=== PATIENT | male | born 1940 | race Caucasian/White ===

== ENCOUNTER 2018-03-08 09:52 | Emergency (ER) | payer OTHER ==
[~2018-03-08] VITALS: Ht 188 cm; Wt 90.7 kg
[~2018-03-08 09:52] MED LIST: ASPI81EC PO; CIPR500 PO; CITA20 PO; CLOP75 PO; FAMO20 PO; FAMOTIDINE; GAVILAX17 GM PO; OXYACE5T PO; PSEU120ER PO; RXOXYACE PO; TAMS.4ER PO; TERB250 PO; VENL75ER PO; ZOLP10 PO
[2018-03-08] MEDS ORDERED: VENL75ER (10:25)
[2018-03-08] MEDS ORDERED: ALEN70 (10:26)
[2018-03-08 10:30] LABS: Chloride (POC) 105 mmol/L (98-108); Creatinine (POC) 0.9 mg/dL (0.8-1.3); Glucose (ISTAT POC) 94 mg/dL (70-99); Hemoglobin (POC) 15.6 g/dL (13.5-17.5); Potassium (POC) 4.5 mmol/L (3.5-5.5); Sodium (POC) 143 mmol/L (135-148); Total CO2 (POC) 27 mmol/L (21-32)
== END 2018-03-08 12:06 | disposition home or self-care (01) ==
LOC: ER 09:52
PROVIDERS: Emergency Medicine
DX: S01.112A Laceration without foreign body of left eyelid and periocular area, initial encounter (principal); S01.81XA Laceration without foreign body of other part of head, initial encounter; S80.02XA Contusion of left knee, initial encounter; R31.9 Hematuria, unspecified; W01.198A Fall on same level from slipping, tripping and stumbling with subsequent striking against other object, initial encounter; Z79.899 Other long term (current) drug therapy; Z86.73 Personal history of transient ischemic attack (TIA), and cerebral infarction without residual deficits; Z87.891 Personal history of nicotine dependence
CPT/HCPCS: 12013; 36415; 70450; 80047; 85014; 99284-25

== ENCOUNTER 2020-01-22 12:51 | Emergency (ER) | payer OTHER ==
[~2020-01-22] VITALS: Ht 182.9 cm; Wt 83.9 kg
[~2020-01-22 12:51] MED LIST changes: +ALEN70 PO
[2020-01-22] MEDS ORDERED: ASPI325 PO (13:04)
[2020-01-22] MEDS ORDERED: OMEGA RED PO (13:06)
[2020-01-22] MEDS ORDERED: AREDS 2 PO (13:09)
[2020-01-22] MEDS ORDERED: Norco 5-325 Ta1 EACH PO (17:06)
== END 2020-01-22 18:15 | disposition home or self-care (01) ==
LOC: ER 12:51
DX: S06.0X0A Concussion without loss of consciousness, initial encounter (principal); S42.032A Displaced fracture of lateral end of left clavicle, initial encounter for closed fracture; S01.81XA Laceration without foreign body of other part of head, initial encounter; Z86.73 Personal history of transient ischemic attack (TIA), and cerebral infarction without residual deficits; Z79.82 Long term (current) use of aspirin; Z79.899 Other long term (current) drug therapy; W10.1XXA Fall (on)(from) sidewalk curb, initial encounter
CPT/HCPCS: 12011; 70450; 72070; 72100; 73000; 99284-25; A9270-GY

== ENCOUNTER → 2020-04-22 | Outpatient (CLI) | payer OTHER ==
[~2020-04-22] MED LIST changes: +AMOCLA875 PO; +AREDS 2 PO; +ASPI325 PO; +ATOR10 PO; -GAVILAX17 GM PO; +LEVAQUIN750 MG PO; +MIRALAX17 GM PO; +Norco 5-325 Ta1 EACH PO; +OMEGA RED PO; +VISBIOME 112.51 EACH PO
[2020-04-22 15:15] LABS: PSA, %Free 27.3 %
== END | disposition home or self-care (01) ==
LOC: LAB 13:38 → LAB SHORT 13:38
PROVIDERS: Hospitalist
DX: R97.20 Elevated prostate specific antigen [PSA] (principal)
CPT/HCPCS: 84153; 84154

== ENCOUNTER 2020-05-01 11:48 | Emergency (ER) | payer OTHER ==
[~2020-05-01] VITALS: Ht 185.4 cm; Wt 79.4 kg
[~2020-05-01 11:48] MED LIST changes: -AMOCLA875 PO; -ATOR10 PO; -LEVAQUIN750 MG PO; -VISBIOME 112.51 EACH PO
[2020-05-01] MEDS ORDERED: ATOR10 PO (12:07)
[2020-05-01 12:26] LABS: BASOPHILS ABSOLUTE AUTO 0.02 K/mm3 (0.00-0.23); BASOPHILS PERCENT AUTO 0 % (0-2); EOSINOPHILS ABSOLUTE AUTO 0.12 K/mm3 (0.00-0.68); EOSINOPHILS PERCENT AUTO 2 % (0-6); Hematocrit 46.2 % (37.0-53.0); Hemoglobin 15.1 g/dL (13.5-17.5); IMMATURE GRAN ABSOLUTE AUTO 0.03 K/mm3 (0.00-0.10); IMMATURE GRAN PERCENT AUTO 0 % (0-1); LYMPHOCYTES ABSOLUTE AUTO 1.97 K/mm3 (0.84-5.20); LYMPHOCYTES PERCENT AUTO 27 % (21-46); MONOCYTES ABSOLUTE AUTO 0.59 K/mm3 (0.16-1.47); MONOCYTES PERCENT AUTO 8 % (4-13); Mean Corpuscular HGB 27.4 pg (26.0-34.0); Mean Corpuscular HGB Conc 32.7 g/dL (31.5-36.5); Mean Corpuscular Volume 84 fL (80-100); NEUTROPHILS ABSOLUTE AUTO 4.56 K/mm3 (1.96-9.15); NEUTROPHILS PERCENT AUTO 63 % (41-73); Platelet Count 196 K/mm3 (150-400); RDW Coefficient Variation 13.4 % (11.7-14.2); RDW Standard Deviation 41.3 fL (35.1-46.3); Red Blood Cell Count 5.51 M/mm3 (4.30-5.90); White Blood Cell Count 7.29 K/mm3 (4.00-11.30)
[2020-05-01 12:45] LABS: Alanine Aminotransfer (ALT/SGP 15 U/L (12-78); Albumin, Blood 3.4 g/dL (3.4-5.0); Albumin/Globulin Ratio 1.1 (0.8-1.8); Alk Phos 119 U/L (50-136); Anion Gap 5 mmol/L (6-16); Aspartate Aminotrans (AST/SGOT 26 U/L (12-37); Bilirubin, Total 1.2 mg/dL (0.1-1.0); Blood Urea Nitrogen 11 mg/dL (8-24); Bun/Creatinine Ratio 12.2 (12.0-20.0); CO2, Blood 26 mmol/L (21-32); Calcium, Blood 8.8 mg/dL (8.5-10.1); Chloride, Blood 112 mmol/L (98-108); Globulin, Blood 3.2 g/dL (2.2-4.0); Glomerular Filtration Rate >60 (60-); Glucose, Blood 108 mg/dL (70-99); Potassium, Blood 4.2 mmol/L (3.5-5.5); Sodium, Blood 143 mmol/L (136-145); Total Protein, Blood 6.6 g/dL (6.4-8.2)
== END 2020-05-01 17:40 | disposition home or self-care (01) ==
LOC: ER 11:48
PROVIDERS: Emergency Medicine
DX: S01.81XA Laceration without foreign body of other part of head, initial encounter (principal); S60.222A Contusion of left hand, initial encounter; S60.221A Contusion of right hand, initial encounter; Z79.82 Long term (current) use of aspirin; Z79.899 Other long term (current) drug therapy; Z86.73 Personal history of transient ischemic attack (TIA), and cerebral infarction without residual deficits; Z87.891 Personal history of nicotine dependence; W01.0XXA Fall on same level from slipping, tripping and stumbling without subsequent striking against object, initial encounter
CPT/HCPCS: 12011; 36415; 70450; 72125; 80053; 85025; 93005; 93010; 99284-25

== ENCOUNTER 2020-06-24 12:10 | Emergency (ER) | payer OTHER ==
[~2020-06-24] VITALS: Ht 185.4 cm; Wt 72.6 kg
[~2020-06-24 12:10] MED LIST changes: +ATOR10 PO
[2020-06-24] MEDS ORDERED: AMOCLA875 PO (14:21)
== END 2020-06-24 15:00 | disposition home or self-care (01) ==
LOC: ER 12:10
DX: S51.852A Open bite of left forearm, initial encounter (principal); Z23 Encounter for immunization; Z79.82 Long term (current) use of aspirin; Z79.899 Other long term (current) drug therapy; Z87.891 Personal history of nicotine dependence; W54.0XXA Bitten by dog, initial encounter
CPT/HCPCS: 12004; 36415; 90471; 90714; 96365-59; 99283-25; A9270; J0696

== ENCOUNTER 2020-07-21 23:10 | Observation (INO) | payer OTHER ==
[~2020-07-21] VITALS: Ht 185.4 cm; Wt 78.0 kg
[~2020-07-21 23:10] MED LIST changes: +AMOCLA875 PO
[2020-07-21 23:39] LABS: BASOPHILS ABSOLUTE AUTO 0.02 K/mm3 (0.00-0.23); BASOPHILS PERCENT AUTO 0 % (0-2); EOSINOPHILS ABSOLUTE AUTO 0.22 K/mm3 (0.00-0.68); EOSINOPHILS PERCENT AUTO 3 % (0-6); Hematocrit 43.7 % (37.0-53.0); Hemoglobin 14.1 g/dL (13.5-17.5); IMMATURE GRAN ABSOLUTE AUTO 0.02 K/mm3 (0.00-0.10); IMMATURE GRAN PERCENT AUTO 0 % (0-1); LYMPHOCYTES ABSOLUTE AUTO 1.88 K/mm3 (0.84-5.20); LYMPHOCYTES PERCENT AUTO 24 % (21-46); MONOCYTES PERCENT AUTO 10 % (4-13); Mean Corpuscular HGB 27.2 pg (26.0-34.0); Mean Corpuscular HGB Conc 32.3 g/dL (31.5-36.5); Mean Corpuscular Volume 84 fL (80-100); Mean Platelet Volume 9.9 fL (9.1-12.4); NEUTROPHILS ABSOLUTE AUTO 5.01 K/mm3 (1.96-9.15); NEUTROPHILS PERCENT AUTO 63 % (41-73); Platelet Count 156 K/mm3 (150-400); RDW Coefficient Variation 13.5 % (11.7-14.2); RDW Standard Deviation 42.1 fL (35.1-46.3); Red Blood Cell Count 5.18 M/mm3 (4.30-5.90); White Blood Cell Count 7.95 K/mm3 (4.00-11.30)
[2020-07-21 23:57] LABS: Alanine Aminotransfer (ALT/SGP 12 U/L (12-78); Albumin, Blood 3.3 g/dL (3.4-5.0); Albumin/Globulin Ratio 1.1 (0.8-1.8); Alk Phos 97 U/L (50-136); Anion Gap 2 mmol/L (6-16); Aspartate Aminotrans (AST/SGOT 14 U/L (12-37); Bilirubin, Total 0.7 mg/dL (0.1-1.0); Blood Urea Nitrogen 15 mg/dL (8-24); Bun/Creatinine Ratio 15.7 (12.0-20.0); CO2, Blood 29 mmol/L (21-32); Calcium, Blood 8.6 mg/dL (8.5-10.1); Chloride, Blood 109 mmol/L (98-108); Creatinine, Blood 0.95 mg/dL (0.60-1.20); Globulin, Blood 2.9 g/dL (2.2-4.0); Glomerular Filtration Rate >60 (60-); Glucose, Blood 94 mg/dL (70-99); Sodium, Blood 140 mmol/L (136-145); Total Protein, Blood 6.2 g/dL (6.4-8.2)
[2020-07-22 01:08] LABS: Source, Urine Clean Catch
[2020-07-22 01:10] LABS: Bilirubin, Urine Neg (Neg); Blood, Urine 1+ (Neg); Glucose Qualitative, Urine Neg (Neg); Ketones, Urine Neg (Neg); Leukocyte Esterase, Urine 1+ (Neg); Nitrite, Urine Neg (Neg); Protein, Urine 1+ (Neg); Specific Gravity, Urine 1.015 (1.003-1.022); Urobilinogen, Urine 1+ (Normal)
[2020-07-22 01:19] LABS: Appearance, Urine Clear (Clear); Color, Urine Yellow (P-Yellow)
[2020-07-22 01:20] LABS: Amorphous Light (0-Heavy); Bacteria Rare /hpf; Mucus Light (0-Heavy); Squamous Epithelial Cells Few /hpf (Few); White Blood Cells, Urine 0-2 /hpf (0-5)
[2020-07-22 03:10] LABS: SARS-Cov-2 (COVID-19) PCR, MMC NEGATIVE (NEGATIVE)
--- NOTE | 2020-07-22 04:08 | NUR ---
PT ADMITTED FROM ER AT APPROX 0200 FOR NICOLLE. ABD MILDLY DISTENDED AND SOFT. ACTIVE BT X4. TENDERNESS IN RLQ WITH PALPATION. PT MEDICATED PRIOR TO ARRIVAL AND REPORTS PAIN IS TOLERABLE. DENIES N/V. PT A&O X4. HX DEMENTIA. AT BEDSIDE WHO IS ABLE TO PROVIDE MEDICAL HISTORY. PT ABLE TO TRANSFER TO BED WITH MINIMAL ASSIST. INDEPENDENT AT BASELINE. PLAN FOR DR. MOTT TO SEE PATIENT LATER THIS MORNING. PT NPO WITH FLUIDS INFUSING PER ORDERS.
--- NOTE | 2020-07-22 11:01 | NUR ---
PT TO OR AT 1100. NOTIFIED; REPORTS SHE WILL MEET PT IN PRE-OP TO SIGN PAPERS.
--- NOTE | 2020-07-22 11:19 | NUR ---
PT TRANSFERED TO [facility] VIA GURNY. History, Chart, Medications and Allergies reviewed before start of procedure. Lungs clear T/O to Auscultation. Pre-Op teaching done. Pt verbalizes understanding. AT BEDSIDE.
--- NOTE | 2020-07-22 12:05 | NUR ---
PT TRANSFERED TO OR VIA GURNY AT APPROX 1045.
--- NOTE | 2020-07-22 12:45 | NUR ---
07/22/20 1245 Everton Lopez PATIENT ON SCHEDULED ANTIBIOTICS
--- NOTE | 2020-07-22 15:07 | NUR ---
PT BACK FROM OR AT 1445. LAP SITES X4 WITH GAUZE AND TEGADERM, CDI. PT WALKED TO BATHROOM WITH SBA AND VOIDED. NOTIFIED THAT PT IS BACK TO ROOM.
--- NOTE | 2020-07-22 17:48 | NUR ---
SHIFT SUMMARY PT ALERT BUT HAS SOME CONFUSION. HE HAD LAP NICOLLE TODAY. LAP SITES X4 COVERED WITH GAUZE AND TEGADERM, C/D/I. ABDOMINAL LAP SCANT AMT OF BLOOD ON GAUZE. DENIES N/V. BEING TREATED FOR PAIN PER EMAR WITH NORCO PRN Q4. PT VOIDING WELL. BEDALARM CURRENTLY ON DUE TO SLIGHT CONFUSION. ON CLEAR LIQ DIET AND TO ADVANCE TOLERATED. WILL REPORT TO ONCOMING RN.
--- NOTE | 2020-07-23 04:27 | NUR ---
SHIFT SUMMARY: PT POD#1 FOR LAP NICOLLE. LAP SITES C/D/I WITH GAUZE AND TEGADERM. DRY BLOODY DRG ON UMBILICAL SITE. PAIN BEING MANAGED WITH NORCO PER EMAR. PT DENIES N/V. TOLERATING SIPS OF WATER THROUGHOUT NIGHT. PT FORGETFUL TO USE CALL LIGHT WHEN NEEDING TO USE RESTROOM. BED ALARM FOR SAFETY.
--- NOTE | 2020-07-23 07:25 | NUR ---
dr smith by to see pt plan to monitor if he can void after the in/out cath if not will repeat x1 then will place wayne with next placement pt has attends in place for cont small amt of bleeding from the penis
--- NOTE | 2020-07-23 11:29 | NUR ---
pt able to void no blood noted per residential supervisor pt back in bed awaiting his will notify dr smith
--- NOTE | 2020-07-23 12:00 | NUR ---
PT VOIDED SCANT AMT WILL DO IN/OUT CATH PER BLADDER SCAN PT HAD EST 500 ML PT HAD SMALL AMT OF BLOOD NOTED
--- NOTE | 2020-07-23 15:38 | NUR ---
pt voided 300 pvr 334 no blood noted will have pt void again with pvr discussed with pt if he has >[address] cath
--- NOTE | 2020-07-23 18:30 | NUR ---
bladder scan [address] per [address] sarah alfonso
--- NOTE | 2020-07-24 04:33 | NUR ---
SHIFT SUMMARY LYING IN HIGH FOWLERS WITH EYES CLOSED, HAS RESTED WELL. STERI STRIP ARE C/D/I AND UMBILICAL GAUZE WITH DRY SS DRAINAGE REMAINS INTACT. DENIES PAIN OR N/V. LEFT FA SL PIV IS PATENT, FLUSHING WITH EASE. SCD'S TO BLE. HUNT CATH IS PATENT, DRAINING CLEAR YELLOW URINE TO GRAVITY. CATH STABLIZATION DEVICE IN PLACE. BAG BELOW PELVIC LEVEL AND NO LOOPING OF LINE. NO FURTHER SIGNIFICANT CHANGES NOTED. DENIES PAIN, DISCOMFORT OR FURTHER NEEDS AT THIS TIME. SAFETY MEASURES IN PLACE. WILL CONTINUE TO MONITOR AND ADDRESS NEEDS THEY ARISE AND GIVE HAND OFF TO ONCOMING SHIFT USING SBAR.
--- NOTE | 2020-07-24 11:01 | NUR ---
NOTIFIED PT'S OF DISCHARGE ORDERS; ARRANGEMENTS MADE FOR PICKUP/DC HOME
[2020-07-24] MEDS ORDERED: TAMS.4ER PO (12:26)
--- NOTE | 2020-07-24 14:45 | NUR ---
provided pt and spoude with discharge instructions and printed education, peripheral IV removed wnl. Provided pt's with instructions for wayne catheter care/emptying, urinal, extra stat lock. pt's transferred pt's belongings to awaiting vehicle. pt transferred to awaiting vehicle via wheelchair.
== END 2020-07-24 14:46 | disposition home or self-care (01) ==
LOC: ER 23:10 → SURS 23:11 → ER 07-22 01:50 → SURS 07-22 02:02
PROVIDERS: Emergency Medicine; ADMIT Surgery
DX: K80.00 Calculus of gallbladder with acute cholecystitis without obstruction (principal); R33.9 Retention of urine, unspecified; I69.351 Hemiplegia and hemiparesis following cerebral infarction affecting right dominant side; Z20.822 Contact with and (suspected) exposure to COVID-19; Z87.891 Personal history of nicotine dependence; Z79.82 Long term (current) use of aspirin; Z79.899 Other long term (current) drug therapy
CPT/HCPCS: 36415; 74177; 74300; 80053; 81001; 85025; 88304; 96365; 96366; 96372; 96375; 96376; 99285-25; A9270; C1729; G0378; J0694; J1100; J1170; J1650; J2370; J2405; J2704; J2710; J3010; J7120; Q9967; U0004

== ENCOUNTER 2020-08-04 16:24 | Observation (INO) | payer OTHER ==
[~2020-08-04] VITALS: Ht 185.4 cm; Wt 86.4 kg
[2020-08-04 17:07] LABS: BASOPHILS ABSOLUTE AUTO 0.04 K/mm3 (0.00-0.23); BASOPHILS PERCENT AUTO 0 % (0-2); EOSINOPHILS PERCENT AUTO 0 % (0-6); Hematocrit 43.9 % (37.0-53.0); Hemoglobin 14.4 g/dL (13.5-17.5); IMMATURE GRAN PERCENT AUTO 1 % (0-1); LYMPHOCYTES ABSOLUTE AUTO 0.98 K/mm3 (0.84-5.20); LYMPHOCYTES PERCENT AUTO 5 % (21-46); MONOCYTES ABSOLUTE AUTO 1.67 K/mm3 (0.16-1.47); MONOCYTES PERCENT AUTO 8 % (4-13); Mean Corpuscular HGB 27.2 pg (26.0-34.0); Mean Corpuscular HGB Conc 32.8 g/dL (31.5-36.5); Mean Corpuscular Volume 83 fL (80-100); Mean Platelet Volume 9.5 fL (9.1-12.4); NEUTROPHILS PERCENT AUTO 86 % (41-73); Platelet Count 163 K/mm3 (150-400); RDW Coefficient Variation 13.5 % (11.7-14.2); RDW Standard Deviation 41.3 fL (35.1-46.3); White Blood Cell Count 20.49 K/mm3 (4.00-11.30)
[2020-08-04 17:39] LABS: Alanine Aminotransfer (ALT/SGP 22 U/L (12-78); Albumin/Globulin Ratio 0.9 (0.8-1.8); Alk Phos 135 U/L (50-136); Anion Gap 6 mmol/L (6-16); Aspartate Aminotrans (AST/SGOT 9 U/L (12-37); Bilirubin, Total 1.7 mg/dL (0.1-1.0); Blood Urea Nitrogen 11 mg/dL (8-24); CO2, Blood 25 mmol/L (21-32); Calcium, Blood 8.5 mg/dL (8.5-10.1); Chloride, Blood 104 mmol/L (98-108); Globulin, Blood 3.5 g/dL (2.2-4.0); Glomerular Filtration Rate >60 (60-); Glucose, Blood 147 mg/dL (70-99); Potassium, Blood 3.5 mmol/L (3.5-5.5); Sodium, Blood 135 mmol/L (136-145); Total Protein, Blood 6.5 g/dL (6.4-8.2)
[2020-08-04 18:26] LABS: Source, Urine Catheter
[2020-08-04 18:37] LABS: Appearance, Urine Cloudy (Clear); Bilirubin, Urine Neg (Neg); Blood, Urine 5+ (Neg); Color, Urine Yellow (P-Yellow); Glucose Qualitative, Urine Neg (Neg); Ketones, Urine Neg (Neg); Leukocyte Esterase, Urine 3+ (Neg); Nitrite, Urine Pos (Neg); Protein, Urine 3+ (Neg); Specific Gravity, Urine 1.015 (1.003-1.022); Urobilinogen, Urine 2+ (Normal)
[2020-08-04 18:45] LABS: Granular Casts 0-2 /lpf (0); White Blood Cells, Urine 50-100 /hpf (0-5)
[2020-08-04 18:46] LABS: Bacteria Many /hpf; Calcium Oxalate Crystals Rare /hpf; Mucus Light (0-Heavy); Red Blood Cells, Urine 25-50 /hpf (0-2); Squamous Epithelial Cells Rare /hpf (Few)
--- NOTE | 2020-08-04 20:00 | NUR ---
REPORT RECIEVED FROM INNA DRAPER RN AND AWAITING PT T/F TO ROOM 324.
--- NOTE | 2020-08-05 04:36 | NUR ---
SUMMARY: PT REMAINS ON COMFORT MEASURES. HE OPENS EYES SPONTANEOUSLY BUT IS NONVERBAL AND MOSTLY NONRESPONSIVE. PT HAS MOIST COUGH THAT HAS BECOME WEAKER W/MORE DIFFICULTY CLEARING SECRETIONS SO ATROPINE GTTS WERE COMMENCED. RESPS ARE SHALLOW AND TACHY AT TIMES W/PRN ROXINOL RECIEVED FOR AIR HUNGER. TURN SCHEDULE MAINTAINED, HUNT IS PATENT/DRAINING AND MOUTH CARE PROVIDED. REMAINS AT BEDSIDE W/THERAPEUTIC SUPPORT GIVEN. NO ACUTE CHANGES. WCTM AND REPORT TO DAY RN.
[2020-08-05 04:58] LABS: Hematocrit 39.8 % (37.0-53.0); Hemoglobin 12.8 g/dL (13.5-17.5); Mean Corpuscular HGB 27.1 pg (26.0-34.0); Mean Corpuscular HGB Conc 32.2 g/dL (31.5-36.5); Mean Corpuscular Volume 84 fL (80-100); Platelet Count 144 K/mm3 (150-400); RDW Coefficient Variation 13.5 % (11.7-14.2); RDW Standard Deviation 42.4 fL (35.1-46.3); Red Blood Cell Count 4.72 M/mm3 (4.30-5.90); White Blood Cell Count 19.56 K/mm3 (4.00-11.30)
--- NOTE | 2020-08-05 05:18 | NUR ---
T/F AND SUMMARY: PT T/F TO 324 VIA GURNEY W/ AT BEDSIDE. HE AMBULATED FROM GURNEY TO BED W/SHUFFLED GAIT AND WAS OBSERVED TO HAVE SOME TROUBLE FOLLOWING INSTRUCTIONS. HEALTH HX OBTAINED FROM PT'S D/T BEING A POOR HISTORIAN. REPORTS SOME MEMORE DIFFICULTY AND R.SIDE WEAKNESS POST CVA BUT DENIES DEMENTIA AND ADMITS THAT HE'S "QUITE ACTIVE ON THE DAILY AT HOME". HE'S ABLE TO CONVEY NEEDS AND ANSWER MOST Q'S APPROPRIATELY BUT HAS SOME DIFFICULTY W/ORIENTATION Q'S. HE WAS AWARE OF SELF BUT DIDN'T KNOW HIS BDAY, HE NAMED "RODNEY" THE PRESIDENT BUT WASN'T AWARE OF DATE AND HE KNEW SURROUNDINGS BUT COULDN'T RECALL ADMISSION DETAILS. PT DENIED PAIN AND ALL OTHER COMPLAINTS, REQUESTED DENTURE REMOVAL AND AGREED TO SPIRITUAL CARE VISIT. BED ALARM WAS ARMED BUT PT MADE NO ATTEMPTS OOB BY SELF. HUNT WAS REPLACED IN ER W/URINE SPECIMEN OBTAINED AT THAT TIME. IV ZOSYN BEING RECIEVED FOR TX OF UTI. NS IS RUNNING AT 100 ML/HR, BAG 1 OF 2 INFUSES AT THIS TIME. NO ACUTE CHANGES, VSS/AFEBRILE. WCTM AND REPORT TO DAY RN.
[2020-08-05 05:30] LABS: Anion Gap 6 mmol/L (6-16); Blood Urea Nitrogen 13 mg/dL (8-24); CO2, Blood 28 mmol/L (21-32); Calcium, Blood 8.1 mg/dL (8.5-10.1); Chloride, Blood 106 mmol/L (98-108); Glomerular Filtration Rate >60 (60-); Glucose, Blood 93 mg/dL (70-99); Sodium, Blood 140 mmol/L (136-145)
--- NOTE | 2020-08-05 13:09 | NUR ---
Patient is lying in bed and alert. Patient has some difficulties with hearing and at times saying the wrong words for what he is meaning to say. 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 He tells me about his family but is unable to name the city or state that his grown son and daughter live in. live in. He says that his Jehovah'S Witness salvador is important to him. I reinforce his helpful attitudes and provide therapeutic listening and prayer. Patient responds well and shows signs of increased peace. I will continue to remain available to patient and family.
--- NOTE | 2020-08-05 17:08 | NUR ---
Shift Summary A/Ox2 to self and hospital. Up with 1p FWW and gait. Slightly unsteady on feet and impulsive; does not follow directions well. Pleasant. at bedside briefly, questions answered to her satisfaction. Worked with PT/OT, tolerated well. Appetite is great, patient eating almost 100% of meals and drinking lots of fluids. NS @ 100. Casanova patent and draining yellow ailyn urine. No acute changes, WCTM.
--- NOTE | 2020-08-06 06:03 | NUR ---
SUMMARY: PT A/OX2-3 W/SOME DIFFICULTY COMING UP W/ OR CURRENT DATE. HE'S FORGETFULL AT TIMES W/BED ALARM ON FOR POSSIBLE IMPULSIVITY AND HX CVA W/MILD RESIDUAL R.SIDE WEAKNESS. PT IS 1PA W/FWW AND GB BUT TENDS TO NEGLECT FWW. HE HAS SHUFFLED GAIT W/SOME TROUBLE FOLLOWING COMMANDS. IV ABX RECIEVED FOR TX OF UTI THEN IV SL. HUNT PATENT AND DRAINING. STERI STRIPS REMAIN INTACT TO X4 LAP NICOLLE SITES FROM SX UPON PREVIOUS ADMISSION, APPROX 07/22/20. PT TO HAVE F/U W/ BUT MAY NEED COMPLETED HERE IF PT REMAINS ADMITTED. NO ACUTE CHANGES. VSS/AFEBRILE. PHYS TX RECOMMENDS HOME W/HOME HEALTH UPON D/C. WCTM AND REPORT TO DAY RN.
[2020-08-06 08:44] LABS: Hematocrit 39.9 % (37.0-53.0); Hemoglobin 12.9 g/dL (13.5-17.5); Mean Corpuscular HGB 27.1 pg (26.0-34.0); Mean Corpuscular HGB Conc 32.3 g/dL (31.5-36.5); Mean Corpuscular Volume 84 fL (80-100); Mean Platelet Volume 9.7 fL (9.1-12.4); Platelet Count 173 K/mm3 (150-400); RDW Coefficient Variation 13.5 % (11.7-14.2); RDW Standard Deviation 41.6 fL (35.1-46.3); Red Blood Cell Count 4.76 M/mm3 (4.30-5.90)
[2020-08-06 08:58] LABS: Albumin, Blood 2.4 g/dL (3.4-5.0); Anion Gap 4 mmol/L (6-16); Blood Urea Nitrogen 9 mg/dL (8-24); Bun/Creatinine Ratio 10.4 (12.0-20.0); CO2, Blood 27 mmol/L (21-32); Calcium, Blood 8.2 mg/dL (8.5-10.1); Chloride, Blood 107 mmol/L (98-108); Creatinine, Blood 0.87 mg/dL (0.60-1.20); Glomerular Filtration Rate >60 (60-); Glucose, Blood 99 mg/dL (70-99); Phosphorus, Blood 2.6 mg/dL (2.5-4.9); Sodium, Blood 138 mmol/L (136-145)
[2020-08-06] MEDS ORDERED: LEVAQUIN750 MG PO (12:29)
[2020-08-06] MEDS ORDERED: VISBIOME 112.51 EACH PO (12:29)
--- NOTE | 2020-08-06 13:30 | NUR ---
Discharge Summary AOx2. Discharging to home. Reviewed discharge paperwork with Aminah (). Questions answered to her satisfaction. Meds faxed. IV removed. Copy of d/c paperwork given. Escorted by GINA via w/c. Personal belongings sent home. Patient arrived with tone and is also discharging with tone. Had shower/shave today. Worked with therapies.
== END 2020-08-06 13:27 | disposition home health service (06) ==
LOC: ER 16:24 → MEDS 16:25
PROVIDERS: Emergency Medicine; ADMIT Internal Medicine
DX: T83.518A Infection and inflammatory reaction due to other urinary catheter, initial encounter (principal); N39.0 Urinary tract infection, site not specified; B96.89 Other specified bacterial agents as the cause of diseases classified elsewhere; N40.0 Benign prostatic hyperplasia without lower urinary tract symptoms; Z66 Do not resuscitate; F32.9 Major depressive disorder, single episode, unspecified; E78.5 Hyperlipidemia, unspecified; K59.09 Other constipation; R53.81 Other malaise; I69.951 Hemiplegia and hemiparesis following unspecified cerebrovascular disease affecting right dominant side; Z79.899 Other long term (current) drug therapy
CPT/HCPCS: 36415; 51702; 51798; 71045; 80048; 80053; 80069; 81001; 83605; 85025; 85027; 87040; 87077; 87086; 87186; 93005; 93010; 96361-59; 96365-59; 96366; 96372; 96376; 97116; 97162; 97166; 97530; 97535; 99285-25; A9270; G0378; J1650; J2543; J7030; J7050

== ENCOUNTER 2020-08-11 18:07 | Emergency (ER) | payer OTHER ==
[~2020-08-11] VITALS: Ht 182.9 cm; Wt 79.4 kg
[~2020-08-11 18:07] MED LIST changes: +LEVAQUIN750 MG PO; +VISBIOME 112.51 EACH PO
[2020-08-11] MEDS ORDERED: ALEN70 PO (18:30)
[2020-08-11 19:13] LABS: BASOPHILS ABSOLUTE AUTO 0.02 K/mm3 (0.00-0.23); BASOPHILS PERCENT AUTO 0 % (0-2); EOSINOPHILS ABSOLUTE AUTO 0.19 K/mm3 (0.00-0.68); EOSINOPHILS PERCENT AUTO 2 % (0-6); Hematocrit 45.1 % (37.0-53.0); Hemoglobin 14.4 g/dL (13.5-17.5); IMMATURE GRAN ABSOLUTE AUTO 0.07 K/mm3 (0.00-0.10); IMMATURE GRAN PERCENT AUTO 1 % (0-1); LYMPHOCYTES ABSOLUTE AUTO 1.37 K/mm3 (0.84-5.20); LYMPHOCYTES PERCENT AUTO 16 % (21-46); MONOCYTES ABSOLUTE AUTO 0.73 K/mm3 (0.16-1.47); MONOCYTES PERCENT AUTO 9 % (4-13); Mean Corpuscular HGB 26.9 pg (26.0-34.0); Mean Corpuscular HGB Conc 31.9 g/dL (31.5-36.5); Mean Corpuscular Volume 84 fL (80-100); Mean Platelet Volume 9.4 fL (9.1-12.4); NEUTROPHILS ABSOLUTE AUTO 6.14 K/mm3 (1.96-9.15); NEUTROPHILS PERCENT AUTO 72 % (41-73); Platelet Count 256 K/mm3 (150-400); RDW Coefficient Variation 13.8 % (11.7-14.2); RDW Standard Deviation 42.5 fL (35.1-46.3); Red Blood Cell Count 5.36 M/mm3 (4.30-5.90); White Blood Cell Count 8.52 K/mm3 (4.00-11.30)
[2020-08-11 19:27] LABS: Alanine Aminotransfer (ALT/SGP 27 U/L (12-78); Albumin/Globulin Ratio 0.8 (0.8-1.8); Alk Phos 119 U/L (50-136); Anion Gap 2 mmol/L (6-16); Aspartate Aminotrans (AST/SGOT 15 U/L (12-37); Bilirubin, Total 0.6 mg/dL (0.1-1.0); Blood Urea Nitrogen 14 mg/dL (8-24); Bun/Creatinine Ratio 11.8 (12.0-20.0); CO2, Blood 29 mmol/L (21-32); Chloride, Blood 109 mmol/L (98-108); Creatinine, Blood 1.19 mg/dL (0.60-1.20); Globulin, Blood 3.8 g/dL (2.2-4.0); Glomerular Filtration Rate >60 (60-); Glucose, Blood 105 mg/dL (70-99); Potassium, Blood 4.8 mmol/L (3.5-5.5); Sodium, Blood 140 mmol/L (136-145); Total Protein, Blood 6.8 g/dL (6.4-8.2)
== END 2020-08-11 21:00 | disposition home or self-care (01) ==
LOC: ER 18:07
PROVIDERS: Emergency Medicine
DX: R55 Syncope and collapse (principal); Z79.82 Long term (current) use of aspirin; Z79.899 Other long term (current) drug therapy; Z86.73 Personal history of transient ischemic attack (TIA), and cerebral infarction without residual deficits; Z87.891 Personal history of nicotine dependence
CPT/HCPCS: 80053; 85025; 93005; 93010; 99284-25; J7030

== ENCOUNTER 2020-08-14 05:53 | Emergency (ER) | payer OTHER ==
[~2020-08-14] VITALS: Ht 185.4 cm; Wt 86.6 kg
[2020-08-14] MEDS ORDERED: VISBIOME 112.51 EACH PO (06:47)
== END 2020-08-14 07:19 | disposition home or self-care (01) ==
LOC: ER 05:53
DX: N39.0 Urinary tract infection, site not specified (principal); Z79.82 Long term (current) use of aspirin; Z79.899 Other long term (current) drug therapy
CPT/HCPCS: 51702; 51798; 99283-25

== ENCOUNTER 2020-09-02 20:46 | Emergency (ER) | payer OTHER ==
[~2020-09-02] VITALS: Ht 188 cm; Wt 88.5 kg
[2020-09-02 21:32] LABS: Source, Urine Catheter
[2020-09-02 21:34] LABS: Appearance, Urine Bloody (Clear); Bilirubin, Urine Neg (Neg); Blood, Urine 5+ (Neg); Color, Urine Red (P-Yellow); Glucose Qualitative, Urine Neg (Neg); Ketones, Urine 1+ (Neg); Leukocyte Esterase, Urine Neg (Neg); Nitrite, Urine Neg (Neg); Protein, Urine 4+ (Neg); Specific Gravity, Urine 1.015 (1.003-1.022); Urobilinogen, Urine NORM (Normal); pH, Urine 6.5 (5.0-8.0)
[2020-09-02 21:41] LABS: Bacteria Few /hpf; Red Blood Cells, Urine TNTC /hpf (0-2); Squamous Epithelial Cells Not Seen /hpf (Few); White Blood Cells, Urine 0-2 /hpf (0-5)
== END 2020-09-03 00:51 | disposition home or self-care (01) ==
LOC: ER 20:46
PROVIDERS: Emergency Medicine
DX: T83.83XA Hemorrhage due to genitourinary prosthetic devices, implants and grafts, initial encounter (principal); Z79.899 Other long term (current) drug therapy; Z79.82 Long term (current) use of aspirin; Z87.891 Personal history of nicotine dependence
CPT/HCPCS: 51700; 51702; 51798; 81001; 99283-25

== ENCOUNTER 2020-09-19 16:46 | Emergency (ER) | payer OTHER ==
[~2020-09-19] VITALS: Ht 185.4 cm; Wt 80.7 kg
[2020-09-19 18:19] LABS: BASOPHILS ABSOLUTE AUTO 0.01 K/mm3 (0.00-0.23); BASOPHILS PERCENT AUTO 0 % (0-2); EOSINOPHILS ABSOLUTE AUTO 0.18 K/mm3 (0.00-0.68); EOSINOPHILS PERCENT AUTO 3 % (0-6); Hematocrit 41.4 % (37.0-53.0); Hemoglobin 13.1 g/dL (13.5-17.5); IMMATURE GRAN ABSOLUTE AUTO 0.01 K/mm3 (0.00-0.10); IMMATURE GRAN PERCENT AUTO 0 % (0-1); LYMPHOCYTES ABSOLUTE AUTO 1.69 K/mm3 (0.84-5.20); LYMPHOCYTES PERCENT AUTO 26 % (21-46); MONOCYTES ABSOLUTE AUTO 0.58 K/mm3 (0.16-1.47); MONOCYTES PERCENT AUTO 9 % (4-13); Mean Corpuscular HGB 26.8 pg (26.0-34.0); Mean Corpuscular HGB Conc 31.6 g/dL (31.5-36.5); Mean Corpuscular Volume 85 fL (80-100); Mean Platelet Volume 9.6 fL (9.1-12.4); NEUTROPHILS PERCENT AUTO 62 % (41-73); Platelet Count 152 K/mm3 (150-400); RDW Coefficient Variation 13.7 % (11.7-14.2); RDW Standard Deviation 42.8 fL (35.1-46.3); Red Blood Cell Count 4.89 M/mm3 (4.30-5.90); White Blood Cell Count 6.47 K/mm3 (4.00-11.30)
[2020-09-19 18:59] LABS: Anion Gap 4 mmol/L (6-16); Blood Urea Nitrogen 13 mg/dL (8-24); Bun/Creatinine Ratio 15.4 (12.0-20.0); CO2, Blood 28 mmol/L (21-32); Chloride, Blood 111 mmol/L (98-108); Creatinine, Blood 0.85 mg/dL (0.60-1.20); Glomerular Filtration Rate >60 (60-); Glucose, Blood 107 mg/dL (70-99); Potassium, Blood 3.7 mmol/L (3.5-5.5); Sodium, Blood 143 mmol/L (136-145)
[2020-09-19 20:48] LABS: Source, Urine Catheter
[2020-09-19 20:52] LABS: Appearance, Urine Cloudy (Clear); Bilirubin, Urine Neg (Neg); Blood, Urine 5+ (Neg); Color, Urine Red (P-Yellow); Glucose Qualitative, Urine Neg (Neg); Ketones, Urine 1+ (Neg); Leukocyte Esterase, Urine 1+ (Neg); Nitrite, Urine Neg (Neg); Protein, Urine 3+ (Neg); Urobilinogen, Urine NORM (Normal)
[2020-09-19 20:58] LABS: Bacteria Not Seen /hpf; Calcium Oxalate Crystals Few /hpf; Red Blood Cells, Urine TNTC /hpf (0-2); Squamous Epithelial Cells Not Seen /hpf (Few)
== END 2020-09-19 22:10 | disposition home or self-care (01) ==
LOC: ER 16:46
PROVIDERS: Emergency Medicine
DX: R31.9 Hematuria, unspecified (principal); Z79.82 Long term (current) use of aspirin; Z79.899 Other long term (current) drug therapy; Z87.891 Personal history of nicotine dependence
CPT/HCPCS: 51798; 80048; 81001; 85025; 99283-25

== ENCOUNTER → 2021-03-10 | Outpatient (CLI) | payer OTHER | END | disposition home or self-care (01) | LOC: LAB SHORT 15:09 | DX: C44.229 Squamous cell carcinoma of skin of left ear and external auricular canal (principal) | CPT/HCPCS: 88305 ==

== ENCOUNTER 2021-06-25 08:54 | Day surgery (SDC) | payer OTHER ==
[~2021-06-25] VITALS: Ht 182.9 cm; Wt 83.7 kg
[~2021-06-25 08:54] MED LIST changes: +FISH OIL 1,2001 EAC4 PO; +VIT1CAPS12
--- NOTE | 2021-06-25 10:24 | NUR ---
06/25/21 [facility] PABLITO MEDEROS PT DRINKING TAHIR MIST SITTING UP IN CHAIR. CAREGIVER LESVIA AT CHAIRSIDE RN EDUCATING ABOUT DC INSTRUCTIONS, DANK VERBALIZED UNDERSTANDING.
== END 2021-06-25 10:24 | disposition home or self-care (01) ==
LOC: ORSCSDS 08:54
PROVIDERS: Ophthalmology
PROC: 08RK3JZ Replacement of Left Lens with Synthetic Substitute, Percutaneous Approach (ICD-10-PCS; principal; 2021-06-25 10:00)
DX: H25.13 Age-related nuclear cataract, bilateral (principal); Z87.891 Personal history of nicotine dependence; Z79.82 Long term (current) use of aspirin; Z79.899 Other long term (current) drug therapy
CPT/HCPCS: J2001; J2250; J3010; J3301; J7040; V2632

== ENCOUNTER → 2021-09-07 | Outpatient (CLI) | payer OTHER | END | disposition home or self-care (01) | LOC: PLD 11:04 → LAB SHORT 11:04 | DX: D04.22 Carcinoma in situ of skin of left ear and external auricular canal (principal) | CPT/HCPCS: 88305 ==

== ENCOUNTER 2021-12-05 09:32 | Emergency (ER) | payer OTHER ==
[~2021-12-05] VITALS: Ht 182.9 cm; Wt 90.7 kg
== END 2021-12-05 12:36 | disposition home or self-care (01) ==
LOC: ER 09:32
DX: M25.571 Pain in right ankle and joints of right foot (principal); S51.011A Laceration without foreign body of right elbow, initial encounter; F03.90 Unspecified dementia, unspecified severity, without behavioral disturbance, psychotic disturbance, mood disturbance, and anxiety; W01.0XXA Fall on same level from slipping, tripping and stumbling without subsequent striking against object, initial encounter; Z79.82 Long term (current) use of aspirin; Z79.899 Other long term (current) drug therapy; Z86.73 Personal history of transient ischemic attack (TIA), and cerebral infarction without residual deficits; Z87.891 Personal history of nicotine dependence
CPT/HCPCS: 70450; 73600; 90471; 90714; 99284-25

== ENCOUNTER 2021-12-08 08:46 | Inpatient (IN) | payer OTHER ==
[~2021-12-08] VITALS: Ht 185.4 cm; Wt 83.9 kg
[2021-12-08 09:54] LABS: BASOPHILS PERCENT AUTO 0 % (0-2); EOSINOPHILS ABSOLUTE AUTO 0.05 K/mm3 (0.00-0.68); EOSINOPHILS PERCENT AUTO 1 % (0-6); Hematocrit 31.6 % (37.0-53.0); Hemoglobin 10.4 g/dL (13.5-17.5); IMMATURE GRAN ABSOLUTE AUTO 0.02 K/mm3 (0.00-0.10); IMMATURE GRAN PERCENT AUTO 0 % (0-1); LYMPHOCYTES ABSOLUTE AUTO 1.24 K/mm3 (0.84-5.20); LYMPHOCYTES PERCENT AUTO 13 % (21-46); MONOCYTES ABSOLUTE AUTO 0.93 K/mm3 (0.16-1.47); MONOCYTES PERCENT AUTO 9 % (4-13); Mean Corpuscular HGB 27.7 pg (26.0-34.0); Mean Corpuscular HGB Conc 32.9 g/dL (31.5-36.5); Mean Corpuscular Volume 84 fL (80-100); Mean Platelet Volume 10.1 fL (9.1-12.4); NEUTROPHILS ABSOLUTE AUTO 7.61 K/mm3 (1.96-9.15); NEUTROPHILS PERCENT AUTO 77 % (41-73); Platelet Count 164 K/mm3 (150-400); RDW Coefficient Variation 13.3 % (11.7-14.2); RDW Standard Deviation 40.8 fL (35.1-46.3); Red Blood Cell Count 3.76 M/mm3 (4.30-5.90); White Blood Cell Count 9.85 K/mm3 (4.00-11.30)
[2021-12-08 10:05] LABS: Albumin, Blood 2.8 g/dL (3.4-5.0); Albumin/Globulin Ratio 0.9 (0.8-1.8); Bilirubin, Total 1.4 mg/dL (0.1-1.0); Bun/Creatinine Ratio 21.5 (12.0-20.0); Calcium, Blood 8.7 mg/dL (8.5-10.1); Creatinine, Blood 0.98 mg/dL (0.60-1.20); Globulin, Blood 3.2 g/dL (2.2-4.0); Potassium, Blood 4.2 mmol/L (3.5-5.5)
[2021-12-08] MEDS ORDERED: ERGO400 (12:32)
--- NOTE | 2021-12-08 16:43 | NUR ---
SHIFT SUMMARY PATIENT ADMITTED FROM ER AT 1330. PATIENT SETTLED INTO ROOM. PATIENT ORIENTED TO CALL LIGHT AND TV CONTROL. PATIENT HX OF DEMENTIA, A&O X2. CALLED TO COMPLETE ADMISSION AND MED REC. PATIENT IS BEDREST. PATIENT IS NPO FOR SURGERY. DR. MULLINS CONSULTED. PATIENT PROBABLE SURGERY TOMORROW. PATIENT VERY FORGETFUL, YELLS OUT WHEN IN NEED OF HELP, EDUCATED HEEL LINING PASTER LIGHT USE, STILL YELLS OUT. PATIENT VISITED IN AFTERNOON, STATED SHE IS THE POA AND WILL BRING IN PAPERWORK, SHE SIGNED BLOOD CONSENT FORM. STATED SHE WILL BE BACK IN MORNING TO SIGN FOR SURGICAL CONSENT. PATIENT IS VERY PLEASANT AND COOPERATIVE WITH CARE.
--- NOTE | 2021-12-09 06:27 | NUR ---
shift summary pt a&ox2, vss. used urinal to void. npo during shift for surgery in am. denied pain except for once when repositioning, medicated per emar. fluids infused per emar. new 20g in r arm placed, previous iv pulled accidentally by pt. pt did not sleep much during noc. call light in reach, bed alarm on.
[2021-12-09 06:29] LABS: Bun/Creatinine Ratio 26.7 (12.0-20.0); Calcium, Blood 8.3 mg/dL (8.5-10.1); Creatinine, Blood 0.64 mg/dL (0.60-1.20); Potassium, Blood 4.5 mmol/L (3.5-5.5)
[2021-12-09 07:47] LABS: Hematocrit 33.4 % (37.0-53.0); Hemoglobin 10.4 g/dL (13.5-17.5); Mean Corpuscular HGB 26.9 pg (26.0-34.0); Mean Corpuscular HGB Conc 31.1 g/dL (31.5-36.5); Mean Corpuscular Volume 87 fL (80-100); Platelet Count 190 K/mm3 (150-400); RDW Coefficient Variation 13.3 % (11.7-14.2); RDW Standard Deviation 41.7 fL (35.1-46.3); Red Blood Cell Count 3.86 M/mm3 (4.30-5.90); White Blood Cell Count 9.53 K/mm3 (4.00-11.30)
--- NOTE | 2021-12-09 18:24 | NUR ---
SHIFT SUMMARY PATIENT MEDICATED FOR PAIN X1. PATIENT DENIES NAUSEA AND SHORTNESS OF BREATH. PATIENT IS BEDREST. PATIENT IS A&O X2. PATIENT CALLS OUT FREQUENTLY, EASILY REDIRECTED. PATIENT AT BEDSIDE THROUGHOUT SHIFT. PATIENT POSSIBLE SURGERY TOMORROW, NPO AT MIDNIGHT. PATIENT EATING AND DRINKING WELL. PATIENT IS VERY PLEASANT AND COOPERATIVE WITH CARE.
--- NOTE | 2021-12-10 05:10 | NUR ---
SHIFT SUMMARY PT HAS BEEN RESTLESS MOST OF THE NIGHT, HE SETS OFF THE BED ALARM MULTIPLE TIMES ATTMEPTING TO LIFT HIS BODY OFF OF THE BED. PT IS PLESANTLY CONFUSED, AND IS REDIRECTABLE. PLAN IS FOR SURGERY TODAY TO REPAIR R HIP. PT MEDICATED FOR PAIN PRN T/O THE NIGHT WITH EFFECT. PT HAS HAD TWO LARGE BM'S, AND HAS HAD SOME URINARY RETENTION REQUIRING THE PLACEMENT OF A HUNT. PT WAS RETAINING 755 MLS OF URINE IN HIS BLADDER. ORDER FROM DR. HUYNH THIS AM FOR CATHETER. PT NPO. IVF INFUSING. NO OTHER CHANGES OVERNIGHT. BED IN LOWEST POSITION, CALL LIGHT WITHIN REACH.
[2021-12-10 05:42] LABS: BASOPHILS ABSOLUTE AUTO 0.01 K/mm3 (0.00-0.23); BASOPHILS PERCENT AUTO 0 % (0-2); EOSINOPHILS ABSOLUTE AUTO 0.02 K/mm3 (0.00-0.68); EOSINOPHILS PERCENT AUTO 0 % (0-6); Hematocrit 31.8 % (37.0-53.0); Hemoglobin 10.2 g/dL (13.5-17.5); IMMATURE GRAN ABSOLUTE AUTO 0.05 K/mm3 (0.00-0.10); IMMATURE GRAN PERCENT AUTO 1 % (0-1); LYMPHOCYTES ABSOLUTE AUTO 0.82 K/mm3 (0.84-5.20); LYMPHOCYTES PERCENT AUTO 8 % (21-46); MONOCYTES ABSOLUTE AUTO 0.69 K/mm3 (0.16-1.47); MONOCYTES PERCENT AUTO 7 % (4-13); Mean Corpuscular HGB 27.3 pg (26.0-34.0); Mean Corpuscular HGB Conc 32.1 g/dL (31.5-36.5); Mean Corpuscular Volume 85 fL (80-100); Mean Platelet Volume 9.8 fL (9.1-12.4); NEUTROPHILS ABSOLUTE AUTO 8.35 K/mm3 (1.96-9.15); NEUTROPHILS PERCENT AUTO 84 % (41-73); Platelet Count 190 K/mm3 (150-400); RDW Coefficient Variation 13.2 % (11.7-14.2); Red Blood Cell Count 3.74 M/mm3 (4.30-5.90); White Blood Cell Count 9.94 K/mm3 (4.00-11.30)
[2021-12-10 06:08] LABS: Source, Urine Foley catheter
[2021-12-10 06:17] LABS: Albumin, Blood 2.7 g/dL (3.4-5.0); Anion Gap 7 mmol/L (6-16); Blood Urea Nitrogen 18 mg/dL (8-24); Bun/Creatinine Ratio 27.1 (12.0-20.0); CO2, Blood 26 mmol/L (21-32); Calcium, Blood 8.8 mg/dL (8.5-10.1); Chloride, Blood 109 mmol/L (98-108); Creatinine, Blood 0.66 mg/dL (0.60-1.20); Glomerular Filtration Rate 95 (60-); Glucose, Blood 120 mg/dL (70-99); Phosphorus, Blood 2.4 mg/dL (2.5-4.9); Potassium, Blood 4.7 mmol/L (3.5-5.5); Sodium, Blood 142 mmol/L (136-145)
[2021-12-10 06:25] LABS: Bilirubin, Urine Neg (Neg); Blood, Urine 2+ (Neg); Glucose Qualitative, Urine Neg (Neg); Ketones, Urine 2+ (Neg); Leukocyte Esterase, Urine Neg (Neg); Nitrite, Urine Neg (Neg); Protein, Urine Neg (Neg); Specific Gravity, Urine 1.015 (1.003-1.022); Urobilinogen, Urine 1+ (Normal); pH, Urine 6.5 (5.0-8.0)
[2021-12-10 06:53] LABS: Appearance, Urine Hazy (Clear); Color, Urine Yellow (P-Yellow); White Blood Cells, Urine Not Seen /hpf (0-5)
[2021-12-10 06:54] LABS: Bacteria Not Seen /hpf; Squamous Epithelial Cells Rare /hpf (Few)
[2021-12-10 09:30] LABS: SARS-Cov-2 (COVID-19) PCR, MMC NEGATIVE (NEGATIVE)
--- NOTE | 2021-12-10 11:23 | NUR ---
PATIENT TO DAY SURGERY VIA BED
--- NOTE | 2021-12-10 12:13 | NUR ---
History, Chart, Medications and Allergies reviewed before start of procedure.Lungs clear T/O to Auscultation. Nurse confirms NPO status and Pt's POA agrees with scheduled surgery. Pre-Op teaching done.
--- NOTE | 2021-12-10 13:48 | NUR ---
12/10/21 1348 Brandi Shaffer HUNT CATHETER IN SITU
--- NOTE | 2021-12-10 14:10 | NUR ---
PT WITH INDWELLING HUNT. INSERTION SITE OOZY AND SLIGHTLY BLOODY. URINE DARK ONEIL, 700CC OF FOUL SMELLING URINE EMPTIED FROM BAG. WILL REPORT TO SURGICAL FLOOR.
--- NOTE | 2021-12-10 14:30 | NUR ---
PATIENT RETURNED TO ROOM FROM PACU. VSS, 2L O2 PLACED D/T PATIENT SATS DROPPING BELOW 92%. SATTING AT 94% ON 2L. LUNGS CLEAR. X2 DRESSINGS TO R HIP, C/D/I. PATIENT DENIES PAIN, WIGLLES ALL TOES, & HAS FULL SENSATION TO BLE. CALL LIGHT IN REACH. THIS RN CONTACTED PATIENTS TO UPDATE THAT PATEINT RETURNED TO ROOM.
[2021-12-10 15:08] LABS: Source, Urine Foley catheter
[2021-12-10 15:34] LABS: Bilirubin, Urine Neg (Neg); Blood, Urine 4+ (Neg); Glucose Qualitative, Urine Neg (Neg); Ketones, Urine 1+ (Neg); Leukocyte Esterase, Urine 3+ (Neg); Nitrite, Urine Neg (Neg); Protein, Urine 2+ (Neg); Urobilinogen, Urine NORM (Normal)
[2021-12-10 15:35] LABS: Appearance, Urine Hazy (Clear); Color, Urine Yellow (P-Yellow)
[2021-12-10 15:37] LABS: Bacteria Few /hpf; Renal Epithelial Mod /hpf (0-Rare); Squamous Epithelial Cells Rare /hpf (Few)
[2021-12-10 15:38] LABS: Hyaline Casts 0-2 /lpf (0-2); Mucus Light (0-Heavy); Transitional Epithelial Cells Rare /hpf (0-Rare); White Blood Cells, Urine 25-50 /hpf (0-5)
--- NOTE | 2021-12-10 18:40 | NUR ---
SUMMARU NO ACUTE CHANGES SINCE RETURN TO ROOM. POD O R HIP NAILING. DRESSINGS C/D/I, PATIENT REPORTS PAIN TO BE 5/10, DENIES NEED FOR PAIN EMDICATION. EATING & DRINKING WELL, HUNT IN PLACE, DRAINING DARK YELLOW URINE. PATIENT UNABLE TO RECALL HOW TO USE CALL LIGHT, IN REACH. BED ALARM IN PLACE. WILL REPORT TO ONCOMING RN.
[2021-12-11 05:01] LABS: BASOPHILS PERCENT AUTO 0 % (0-2); EOSINOPHILS PERCENT AUTO 0 % (0-6); Hematocrit 25.1 % (37.0-53.0); Hemoglobin 8.3 g/dL (13.5-17.5); IMMATURE GRAN ABSOLUTE AUTO 0.02 K/mm3 (0.00-0.10); IMMATURE GRAN PERCENT AUTO 0 % (0-1); LYMPHOCYTES ABSOLUTE AUTO 1.07 K/mm3 (0.84-5.20); LYMPHOCYTES PERCENT AUTO 11 % (21-46); MONOCYTES ABSOLUTE AUTO 0.95 K/mm3 (0.16-1.47); MONOCYTES PERCENT AUTO 10 % (4-13); Mean Corpuscular HGB 27.9 pg (26.0-34.0); Mean Corpuscular HGB Conc 33.1 g/dL (31.5-36.5); Mean Corpuscular Volume 84 fL (80-100); NEUTROPHILS ABSOLUTE AUTO 7.31 K/mm3 (1.96-9.15); NEUTROPHILS PERCENT AUTO 78 % (41-73); Platelet Count 185 K/mm3 (150-400); RDW Coefficient Variation 13.2 % (11.7-14.2); RDW Standard Deviation 40.3 fL (35.1-46.3); Red Blood Cell Count 2.98 M/mm3 (4.30-5.90); White Blood Cell Count 9.35 K/mm3 (4.00-11.30)
[2021-12-11 05:30] LABS: Bun/Creatinine Ratio 22.2 (12.0-20.0); Calcium, Blood 8.2 mg/dL (8.5-10.1); Creatinine, Blood 0.81 mg/dL (0.60-1.20); Magnesium, Blood 1.9 mg/dL (1.6-2.4); Potassium, Blood 4.4 mmol/L (3.5-5.5)
--- NOTE | 2021-12-11 05:47 | NUR ---
SHIFT SUMMARY PT ALERT BUT CONFUSED, BED ALARM ON. NO ACUTE CHANGES. PT DID NOT REQUIRE PAIN COVERAGE, STATED THAT IT HURT A LITTLE, BUT WAS TOLERABLE, AND DID NOT WANT ANYTHING. DRESSINGS ON R HIP C/D/I. HUNT IN PLACE AND DRAINING TO GRAVITY, YELLOW/CLEAR. CALL LIGHT WITHIN REACH.
--- NOTE | 2021-12-11 18:02 | NUR ---
SUMMARY: PT IS POD1 R HIP NAILING. ALERT AND CONFUSED, HX OF DEMENTIA. PT ORIENTED TO NAME ONLY, PLEASENT. SURGICAL SITE WNL TODAY, SOME BRUISING AND SWELLING TO RLE. PT REPORTED PAIN WITH MOVEMENT, MEDICATED PER EMAR. OTHERWISE DENIED PAIN. PT ABLE TO STAND AND PIVOT TO CHAIR TODAY WITH THERAPY, 2 MAX ASSIST.NO ACUTE CONCERNS AT THIS TIME.
--- NOTE | 2021-12-12 04:06 | NUR ---
SHIFT SUMMARY POD 2 R HIP NAILING. DRESSINGS X2 WITH GAUZE AND FOAM TAPE TO THE R HIP CDI. PATIENT IS A&OX2, WITH MILD CONFUSION TO EVENT, DATE AND TIME. COOPERATIVE AND PLEASANT. TURNS EASILY THROUHGOUT SHIFT. MARKED SWELLING OF +2 TO THE R HIP AND GROIN ABOVE THE KNEE. ELEVATED AND ICE PACK APPLIED. ALSO NOTED DARK BLUE/PURPLE BRUSING ON UPPER R THIGH AND GROIN AREA. PATIENT IS ABLE TO TOLERATE PO SOFT FOODS WITH ASSISTANCE, TAKES PILLS WHOLE WITH WATER. HUNT PATENT AND DRAINING CLEAR, YELLOW URINE. DENIES PAIN, N/V, N/T. VSS. CALL LIGHT IN REACH, BED ALARM ON.
--- NOTE | 2021-12-12 11:28 | NUR ---
RN NOTE MR SALEH IS ORIENTATED TO HIS NAME AND AND TUESDAY, OTHERWISE HE IS FORGETFUL AND CONFUSED. HE CAN FOLLOW SIMPLE DIRECTIONS, BUT MAY FORGET PART WAY THROUGH. OOBTC WITH PT THIS AM WHO REPORTED THAT HE WAS A HEAVY 2 PERSON TRANSFER AND FORGOT INSTRUCTIONS. S/B DR DOTY THIS AM AND DRESSING CHANGE DONE BY . HUNT CATHETER REMOVED PER ORDER AT 1100HRS. IVF CONTINUE UNTIL BETTER ORAL INTAKE. IS DONE WITH GOOD TECHNIQUE WHEN REMINDED TO 1000CC. ICE PACK TO R HIP. TYLENOL GIVEN FOR 5/10 PAIN. HERE AT BEDSIDE. CALL LIGHT IN REACH.
--- NOTE | 2021-12-12 16:21 | NUR ---
SHIFT SUMMARY SEE RN NOTE 1128AM. MR LARA TOLERATED SITTING UP IN THE CHAIR UNTIL AROUND 3PM. NOW BACK IN BED ON LEFT SIDE. 2 PERSON ASSIST TO BED WITH GAIT BELT. HUNT WAS REMOVED AT 11AM, VOIDED TO URINAL AT 1500HRS. TAKING GOOD PO WATER WHEN REMINDED AND ENCOURAGED. R HIP AREA SWOLLEN AND BRUISED, ICE PACK TO THE AREA. DOING INCENTIVE SPIROMETRY WITH A LOT OF ENCOURAGEMENT. PAIN CONTROLLED WITH PO TYLENOL. BED LOW, CALL LIGHT IN REACH, BED ALARM ON.
--- NOTE | 2021-12-13 04:31 | NUR ---
POD3 FOR A RIGHT HIP NAILING. AQUACEL DRESSING REMAINS C/D/I. CIRCULATION AND SENSATION REMAINS INTACT IN RLE. VSS. PT SLEPT WELL T/O THE NIGHT. PT C/O PAIN WITH MOVEMENT BUT WHEN OFFERED PAIN MEDICATION HE ADAMENTLY DENIES THE NEED FOR ANY HE STATES "HE DOES NOT HURT WHEN HE DOSENT MOVE". PT VOIDING INTO THE URINAL INDEPENTLY T/O THE NIGHT, PASSING FLATTUS. NO BM'S TONIGHT. TOLLERATING PO INTAKE W/O N/V. THE PATIENT IS CURRENTLY SLEEPING, IN NO DISTRESS. CALL LIGHT IN REACH, BED ALARM ON. PLAN FOR PT TO GO TO SNF THIS WEEK.
--- NOTE | 2021-12-13 18:52 | NUR ---
SHIFT SUMMARY PT AxOx1-2 WITH FREQUENT CONFUSION AND FORGETFULNESS. PT IS PLEASANT AND COOPERATIVE WITH CARE AND FOLLOWS DIRECTIONS MUCH ABLE. PT HAS HX OF DEMENTIA. PT IS POST OP DAY 3 FOR R HIP FX WITH TFN SURGICAL INTERVENTION. PT WAS MEDICATED FOR PAIN x2 THIS SHIFT. PT'S CALLED FOR UPDATE THIS SHIFT. PT WAS UP IN RECLINER FOR PART OF THE SHIFT. PT USED URINAL WITH ASSIST. VITALS REVIEWED. PT IS CURRENTLY SITTING IN BED EATING DINNER. CALL LIGHT IN REACH. PT DENIES ANY NEEDS AT THIS TIME. CURRENT PLAN IS FOR PT TO DC TO SNF TOMORROW.
--- NOTE | 2021-12-14 04:17 | NUR ---
POD4 FOR A RIGHT HIP NAILING. AQUACEL DRESSINGS REMAINS C/D/I, MINIMAL SHADOWING NOTED. CIRCULATION AND SENSATION REMAINS INTACT IN RLE. BRUISING AMD SWELLING NOTED IN THE PATIENT RIGHT THIGH. PT DENIES CHANGES IN SENSATION. ELEVATED ON PILLOWS. PT VOIDING WITH SOME DIFFICULTY, HX OF BPH. PLAN TO BLADDER SCAN PRN. PT HAD AN INCONTINENT BM W/O DIFFICULTY. TOLLERATING PO INTAKE. PAIN HAS BEEN CONTROLLED WITH TORADOL AND TYLENOL. NO ACUTE EVENTS T/O THE NIGHT. PLAN FOR THE PT TO D/C TODAY TO SNF. THE PATIENT IS CURRENTLY RESTING IN BED, IN NO DISTRESS. CALL LIGHT IN REACH, BED ALARM ON FOR SAFETY
--- NOTE | 2021-12-14 05:26 | NUR ---
ORDER OBTAINED FROM HOSPITALIST FOR A STRAIT CATH THE PTS BLADDER SCAN WAS 916 MLS. THE PATIENT TOLLERATED THIS WELL AND DRAINED 1275 MLS.
[2021-12-14 16:39] LABS: SARS-Cov-2 (COVID-19) PCR, MMC NEGATIVE (NEGATIVE)
--- NOTE | 2021-12-14 17:37 | NUR ---
DISCHARGE SUMMARY PATIENT PLEASANTLY CONFUSED THROUGHOUT SHIFT. COOPERATIVE WITH CARE. RIGHT HIP INCISION WITH AQUACELS C/D/I. SWELLING AND BRUISING TO RIGHT HIP NOTED. 2 PERSON MOD ASSIST WITH GAIT BELT AND FWW TO PIVOT TO CHAIR. PAIN CONTROLLED WITH PO PAIN MEDS. TOLERATED REGULAR DIET AND LIQUIDS. INCONTINENT OF URINE AND BOWEL, ATTENDS CHANGED PRN. DISCHARGE TO SNF ORDER OBTAINED. COVID TEST NEGATIVE. REPORT CALLED TO SNF RN. PATIENT LEFT UNIT VIA MEDICAL TRANSPORT AT 1730 VIA WHEELCHAIR FOR SNF.
== END 2021-12-14 17:37 | DRG 482 ==
LOC: ER 08:46 → SURS 12:04
PROVIDERS: Internal Medicine; Nurse Practitioner Acute Care; Orthopaedic Surgery; Physician Assistant; Student in an Organized Health Care Education/Training Program; ADMIT Internal Medicine
PROC: 0QS634Z Reposition Right Upper Femur with Internal Fixation Device, Percutaneous Approach (ICD-10-PCS; principal; 2021-12-10 12:30)
DX: S72.141A Displaced intertrochanteric fracture of right femur, initial encounter for closed fracture (principal); Z20.822 Contact with and (suspected) exposure to COVID-19; Z66 Do not resuscitate; F32.A Depression, unspecified; F03.90 Unspecified dementia, unspecified severity, without behavioral disturbance, psychotic disturbance, mood disturbance, and anxiety; D64.9 Anemia, unspecified; N40.0 Benign prostatic hyperplasia without lower urinary tract symptoms; M81.0 Age-related osteoporosis without current pathological fracture; I69.315 Cognitive social or emotional deficit following cerebral infarction; Z87.891 Personal history of nicotine dependence; Z90.49 Acquired absence of other specified parts of digestive tract; Z79.82 Long term (current) use of aspirin; Z79.899 Other long term (current) drug therapy; W18.39XA Other fall on same level, initial encounter
CPT/HCPCS: 36415; 51701; 73502; 73552; 73590; 73700; 76377; 80048; 80053; 80069; 81001; 83735; 85025; 85027; 87086; 93005; 93010; 96374; 97110; 97162; 97166; 97530; 97535; 99285-25; A9270; C1713; C1769; J0690; J1100; J1170; J1650; J1885; J2405; J2704; J3010; J3370; J7030; J7120; U0004

== ENCOUNTER → 2022-02-19 | Outpatient (CLI) | payer OTHER ==
[~2022-02-19] MED LIST changes: +ERGO400
[2022-02-19 23:48] LABS: Source, Urine Clean Catch
[2022-02-19 23:51] LABS: Bilirubin, Urine Neg (Neg); Blood, Urine 3+ (Neg); Glucose Qualitative, Urine Neg (Neg); Ketones, Urine Neg (Neg); Leukocyte Esterase, Urine 3+ (Neg); Nitrite, Urine Pos (Neg); Protein, Urine 2+ (Neg); Urobilinogen, Urine NORM (Normal)
[2022-02-19 23:54] LABS: Appearance, Urine Hazy (Clear); Color, Urine Yellow (P-Yellow)
[2022-02-20 00:19] LABS: Bacteria Many /hpf; Red Blood Cells, Urine 0-2 /hpf (0-2); Squamous Epithelial Cells Not Seen /hpf (Few); White Blood Cells, Urine TNTC /hpf (0-5)
== END | disposition home or self-care (01) ==
LOC: EDSTATUS 10:07 → LAB RH 23:44
PROVIDERS: Internal Medicine
DX: N39.0 Urinary tract infection, site not specified (principal)
CPT/HCPCS: 81001; 87040; 87077; 87086; 87186

== ENCOUNTER 2022-05-06 17:30 | Inpatient (IN) | payer OTHER ==
[~2022-05-06] VITALS: Ht 185.4 cm; Wt 81.7 kg
[2022-05-06 18:46] LABS: BASOPHILS ABSOLUTE AUTO 0.01 K/mm3 (0.00-0.23); BASOPHILS PERCENT AUTO 0 % (0-2); EOSINOPHILS ABSOLUTE AUTO 0.07 K/mm3 (0.00-0.68); EOSINOPHILS PERCENT AUTO 1 % (0-6); Hemoglobin 14.7 g/dL (13.5-17.5); IMMATURE GRAN ABSOLUTE AUTO 0.01 K/mm3 (0.00-0.10); IMMATURE GRAN PERCENT AUTO 0 % (0-1); LYMPHOCYTES ABSOLUTE AUTO 1.77 K/mm3 (0.84-5.20); LYMPHOCYTES PERCENT AUTO 34 % (21-46); MONOCYTES ABSOLUTE AUTO 0.66 K/mm3 (0.16-1.47); MONOCYTES PERCENT AUTO 13 % (4-13); Mean Corpuscular HGB Conc 31.3 g/dL (31.5-36.5); Mean Corpuscular Volume 80 fL (80-100); Mean Platelet Volume 9.4 fL (9.1-12.4); NEUTROPHILS ABSOLUTE AUTO 2.73 K/mm3 (1.96-9.15); NEUTROPHILS PERCENT AUTO 52 % (41-73); Platelet Count 153 K/mm3 (150-400); RDW Coefficient Variation 16.6 % (11.7-14.2); RDW Standard Deviation 47.8 fL (35.1-46.3); Red Blood Cell Count 5.88 M/mm3 (4.30-5.90); White Blood Cell Count 5.25 K/mm3 (4.00-11.30)
[2022-05-06 18:51] LABS: Source, Urine Clean Catch
[2022-05-06 18:54] LABS: Appearance, Urine Cloudy (Clear); Bilirubin, Urine Neg (Neg); Blood, Urine 4+ (Neg); Color, Urine Yellow (P-Yellow); Glucose Qualitative, Urine Neg (Neg); Ketones, Urine Neg (Neg); Leukocyte Esterase, Urine 3+ (Neg); Nitrite, Urine Pos (Neg); Protein, Urine 2+ (Neg); Specific Gravity, Urine 1.025 (1.003-1.022); Urobilinogen, Urine NORM (Normal)
[2022-05-06 19:04] LABS: Albumin, Blood 3.3 g/dL (3.4-5.0); Albumin/Globulin Ratio 0.9 (0.8-1.8); Bilirubin, Total 0.7 mg/dL (0.1-1.0); Calcium, Blood 9.1 mg/dL (8.5-10.1); Creatinine, Blood 0.94 mg/dL (0.60-1.20); Globulin, Blood 3.5 g/dL (2.2-4.0); Potassium, Blood 4.3 mmol/L (3.5-5.5); Total Protein, Blood 6.8 g/dL (6.4-8.2)
[2022-05-06 19:07] LABS: White Blood Cells, Urine TNTC /hpf (0-5)
[2022-05-06 19:08] LABS: Bacteria Many /hpf; Squamous Epithelial Cells Rare /hpf (Few); Transitional Epithelial Cells Rare /hpf (0-Rare)
[2022-05-06 19:43] LABS: Influenza A, PCR NEGATIVE (NEGATIVE); Influenza B, PCR NEGATIVE (NEGATIVE); Resp Syncytial Virus, PCR NEGATIVE (NEGATIVE); SARS-Cov-2 (COVID-19) PCR, MMC NEGATIVE (NEGATIVE)
--- NOTE | 2022-05-07 04:46 | NUR ---
SHIFT SUMMARY PT ADMITTED AT 2240 VIA GURNEY- PT A&O SELF- STARTED IV INFUSION LEFT AC- SCDS APPLIED- PT TOLERATING WELL- RT APPLIED LATHMAKER - PT SATS LOW 80S - APPLIED 2L O2 VIA NC- PT TURNED Q2H- BED LOW POSITION, CALL LIGHT WIHIN REACH, BED ALARM IN PLACE
[2022-05-07 05:46] LABS: BASOPHILS ABSOLUTE AUTO 0.02 K/mm3 (0.00-0.23); BASOPHILS PERCENT AUTO 0 % (0-2); EOSINOPHILS PERCENT AUTO 2 % (0-6); Hematocrit 46.4 % (37.0-53.0); Hemoglobin 14.3 g/dL (13.5-17.5); IMMATURE GRAN ABSOLUTE AUTO 0.01 K/mm3 (0.00-0.10); IMMATURE GRAN PERCENT AUTO 0 % (0-1); LYMPHOCYTES ABSOLUTE AUTO 1.79 K/mm3 (0.84-5.20); LYMPHOCYTES PERCENT AUTO 29 % (21-46); MONOCYTES ABSOLUTE AUTO 0.67 K/mm3 (0.16-1.47); MONOCYTES PERCENT AUTO 11 % (4-13); Mean Corpuscular HGB Conc 30.8 g/dL (31.5-36.5); Mean Corpuscular Volume 81 fL (80-100); Mean Platelet Volume 9.4 fL (9.1-12.4); NEUTROPHILS ABSOLUTE AUTO 3.61 K/mm3 (1.96-9.15); NEUTROPHILS PERCENT AUTO 58 % (41-73); Platelet Count 151 K/mm3 (150-400); RDW Coefficient Variation 16.8 % (11.7-14.2); RDW Standard Deviation 49.1 fL (35.1-46.3); Red Blood Cell Count 5.71 M/mm3 (4.30-5.90)
[2022-05-07 06:25] LABS: Bun/Creatinine Ratio 15.6 (12.0-20.0); Calcium, Blood 8.8 mg/dL (8.5-10.1); Creatinine, Blood 0.96 mg/dL (0.60-1.20); Potassium, Blood 3.9 mmol/L (3.5-5.5)
--- NOTE | 2022-05-07 10:37 | NUR ---
NOTES: RECEIVED A CALL FROM [facility]AURA [employer] HELPER AT [facility] THE PATIENT RESIDE. ASKING FOR AN UPDATE REGARDING IN PATIENT CONDITION. UPDATE GIVEN TO ROSAURA mortensen PATIENT PERMISSION. PER ROSAURA PATIENT IS ABLE TO AMBULATE USING FWW AND HE IS ON REGULAR DIET c NO RESTRECTIONS.
--- NOTE | 2022-05-07 16:03 | NUR ---
SHIFT SUMMARY: PATIENT ALERT AND ORIENTED TO SELF. PLEASANTLY CONFUSED AND FOLLOW DIRECTIONS. PATIENT DENIES CP/PRESSURE, N/V, SOB. PATIENT ON O2 2L VIA NC c SPO2 RANGES 94-95% T/O SHIFT. LUNGS HAS EXP WHEEZES/DIM T/O TO AUSCULTATION. PATIENT WORK c PT MOBILITY AND TOLERATED AMBULATING IN HALLWAY AND BACK IN ROOM. PER PT PATIENT AT BASELINE LEVEL OF FUNCTIONING, DC HOME c NO FURTHER FOLLOW UP TX. PATIENT RECEIVED SCHEDULED MEDS. TOLERATED PO INTAKE WITHOUT DIFFICULTIES. PATIENT IS CONT/INC VOID USES URINAL AND WEARS ATTENDS. VITAL SIGNS REVIEWED. IV TO LAC SALINE LOCKED. BED ALARM ON FOR SAFETY. CALL LIGHT IN REACH.
--- NOTE | 2022-05-08 05:37 | NUR ---
PT IS A&O TO SELF, SB WITH WALKER USES URINAL, 2L NC SATS LOW TO MID 90'S, NO COMPLAINTS OF PAIN OR DISCOMFORT THIS SHIFT, CONTINUE POC
[2022-05-08 05:58] LABS: Hematocrit 45.3 % (37.0-53.0); Hemoglobin 14.5 g/dL (13.5-17.5); Mean Corpuscular HGB 25.5 pg (26.0-34.0); Mean Corpuscular Volume 80 fL (80-100); Mean Platelet Volume 9.5 fL (9.1-12.4); Platelet Count 162 K/mm3 (150-400); RDW Coefficient Variation 16.5 % (11.7-14.2); RDW Standard Deviation 46.8 fL (35.1-46.3); Red Blood Cell Count 5.68 M/mm3 (4.30-5.90); White Blood Cell Count 5.24 K/mm3 (4.00-11.30)
[2022-05-08 06:22] LABS: Albumin, Blood 3.1 g/dL (3.4-5.0); Anion Gap 2 mmol/L (6-16); Blood Urea Nitrogen 14 mg/dL (8-24); CO2, Blood 32 mmol/L (21-32); Calcium, Blood 8.6 mg/dL (8.5-10.1); Chloride, Blood 106 mmol/L (98-108); Creatinine, Blood 0.82 mg/dL (0.60-1.20); Glomerular Filtration Rate 89 (60-); Glucose, Blood 100 mg/dL (70-99); Phosphorus, Blood 2.6 mg/dL (2.5-4.9); Potassium, Blood 3.9 mmol/L (3.5-5.5); Sodium, Blood 140 mmol/L (136-145)
--- NOTE | 2022-05-08 16:04 | NUR ---
SHIFT SUMMARY: PATIENT IS ALERT AND ORIENTED TO SELF. PLEASANTLY CONFUSED AND FOLLOW DIRECTION. PATIENT REPORTS HE IS FEELING BETTER TODAY COMPARED YESTERDAY. DENIES CP/PRESSURE, N/V, GENERALIZED PAIN. LUNGS STILL WHEEZES T/O TO AUSCULTATION. PATIENT WAS PLACED ON RA AT AROUND 1200. PATIENT OXYGENATION WAS MONITORED T/O THIS PROCESS. PATIENT O2 ON RA RANGES 91-94% T/O SHIFT. PATIENT AMBULATES TO BATHROOM AND TOOK HIS SHOWER c MINIMAL ASSIST AND TOLERATED WELL. PATIENT DENIES SOB c AMBULATION. PATIENT TOLERATED WELL SITTING UP IN THE CHAIR FOR BREAKFAST AND LUNCH. VITAL SIGNS REVIEWED. RECEIVED SCHEDULED MEDS PER EMAR. IV TO LAC SALINE LOCKED. BED ALARM ON FOR SAFETY. CALL LIGHT IN REACH.
--- NOTE | 2022-05-09 03:21 | NUR ---
SHIFT SUMMARY NOC PT A/O TO SELF. PLEASANTLY CONFUSED AND FOLLOWS DIRECTIONS. PT USED BEDSIDE URINAL INDEPENDENTLY DURING SHIFT. PT RECEIVING IV ROCEPHIN FOR UTI/E COLI INFECTION. PT HAS PT/OT EVAL SCHEDULED AND PROVIDER NOTES THAT PT IS POSSIBLE D/C 05/08/22 BACK TO [facility]. PT IS CURRENTLY RESTING WITH BED ALARM ON, BED IN LOWEST POSITION, AND CALL LIGHT WITHIN REACH.
[2022-05-09] MEDS ORDERED: CEFD300 PO (13:45)
--- NOTE | 2022-05-09 15:19 | NUR ---
NOTE/SHIFT SUMMARY: PATIENT ALERT AND ORIENTED TO SELF. PLEASANTLY CONFUSED AND FOLLOW DIRECTIONS. PATIENT DENIES CP/PRESSURE, N/V, GENERALIZED PAIN. PATIENT ON RA c SPO2 RANGES 91-94%. DENIES SOB. PATIENT AMBULATES TO BATHROOM AND TOOK A SHOWER THIS AM c MINIMAL ASSIST FROM STAFF. TOLERATING PO INTAKE WITHOUT ISSUES OF SWALLOWING. RECEIVED SCHEDULED MEDS PER EMAR. PATIENT CONT/INCONT, USES URINAL AND ATTENDS INPLACE. VITAL SIGNS REVIEWED. OVERALL, PATIENT REPORTS "I AM FEELING SO MUCH BETTER AND I WOULD LIKE TO GO BACK HOME." IV TO LAC DC'D. PATIENT DISCHARGE BACK TO [facility]. REPORT GIVEN TO MARGRET [employer] STAFF AT THE [facility] AT AROUND 1417 REGARDING PATIENT CONDITION. EDUCATE MARGRET AND PATIENT REGARDING ADMITTING DX, S/S, TX AND NEW PRESCRIBED MEDICATION. MARGRET AND PATIENT STATED UNDERSTANDING AND NO FURTHER QUESTIONS. INSTRUCTION PACKET GIVEN TO [employer] PERSONNEL. RX WAS FAXED TO [facility] FACILITY. ALL PATIENT PERSONNAL BELONGINGS WERE SENT HOME WITH THE PATIENT. PATIENT LEFT THE ROOM AT 1517. PATIENT WAS TRANSPORTED VIA WHEELCHAIR BY [employer] PERSONNEL BACK TO THE [facility].
== END 2022-05-09 15:18 | disposition home or self-care (01) | DRG 689 ==
LOC: ER 17:30 → MEDS 22:02
PROVIDERS: Family Medicine; Internal Medicine; Student in an Organized Health Care Education/Training Program; ADMIT Internal Medicine
PROC: 0T9B70Z Drainage of Bladder with Drainage Device, Via Natural or Artificial Opening (ICD-10-PCS; principal; 2022-05-06)
DX: N39.0 Urinary tract infection, site not specified (principal); G92.8 Other toxic encephalopathy; J96.01 Acute respiratory failure with hypoxia; J98.11 Atelectasis; Q27.30 Arteriovenous malformation, site unspecified; I69.351 Hemiplegia and hemiparesis following cerebral infarction affecting right dominant side; F03.90 Unspecified dementia, unspecified severity, without behavioral disturbance, psychotic disturbance, mood disturbance, and anxiety; E78.5 Hyperlipidemia, unspecified; B96.20 Unspecified Escherichia coli [E. coli] as the cause of diseases classified elsewhere; M81.0 Age-related osteoporosis without current pathological fracture; H35.30 Unspecified macular degeneration; F32.A Depression, unspecified; N40.0 Benign prostatic hyperplasia without lower urinary tract symptoms; Z20.822 Contact with and (suspected) exposure to COVID-19; Z98.890 Other specified postprocedural states; Z79.899 Other long term (current) drug therapy; Z79.82 Long term (current) use of aspirin; Z79.02 Long term (current) use of antithrombotics/antiplatelets; Z90.49 Acquired absence of other specified parts of digestive tract; Z87.891 Personal history of nicotine dependence
CPT/HCPCS: 0241U; 36415; 71046; 80048; 80053; 80069; 81001; 83880; 84484; 85025; 85027; 87077; 87086; 87186; 93005; 93010; 94762; 96365; 96375; 97116; 97161; 97166; 97530; 99285-25; A9270; J0290; J0456; J0696; J1650; J7030; J7050

== ENCOUNTER 2022-05-31 16:42 | Emergency (ER) | payer OTHER ==
[~2022-05-31] VITALS: Ht 185.4 cm; Wt 79.8 kg
[~2022-05-31 16:42] MED LIST changes: +CEFD300 PO
[2022-05-31 17:05] LABS: BASOPHILS ABSOLUTE AUTO 0.01 K/mm3 (0.00-0.23); BASOPHILS PERCENT AUTO 0 % (0-2); EOSINOPHILS ABSOLUTE AUTO 0.14 K/mm3 (0.00-0.68); EOSINOPHILS PERCENT AUTO 2 % (0-6); Hematocrit 42.8 % (37.0-53.0); Hemoglobin 13.8 g/dL (13.5-17.5); IMMATURE GRAN ABSOLUTE AUTO 0.02 K/mm3 (0.00-0.10); IMMATURE GRAN PERCENT AUTO 0 % (0-1); LYMPHOCYTES ABSOLUTE AUTO 1.53 K/mm3 (0.84-5.20); LYMPHOCYTES PERCENT AUTO 27 % (21-46); MONOCYTES ABSOLUTE AUTO 0.71 K/mm3 (0.16-1.47); MONOCYTES PERCENT AUTO 12 % (4-13); Mean Corpuscular HGB 26.1 pg (26.0-34.0); Mean Corpuscular HGB Conc 32.2 g/dL (31.5-36.5); Mean Corpuscular Volume 81 fL (80-100); Mean Platelet Volume 9.6 fL (9.1-12.4); NEUTROPHILS ABSOLUTE AUTO 3.34 K/mm3 (1.96-9.15); NEUTROPHILS PERCENT AUTO 58 % (41-73); Platelet Count 146 K/mm3 (150-400); RDW Coefficient Variation 16.9 % (11.7-14.2); RDW Standard Deviation 49.6 fL (35.1-46.3); Red Blood Cell Count 5.28 M/mm3 (4.30-5.90); White Blood Cell Count 5.75 K/mm3 (4.00-11.30)
[2022-05-31 17:11] LABS: Source, Urine Clean Catch
[2022-05-31 17:13] LABS: Appearance, Urine Clear (Clear); Bilirubin, Urine Neg (Neg); Blood, Urine Neg (Neg); Color, Urine Yellow (P-Yellow); Glucose Qualitative, Urine Neg (Neg); Ketones, Urine Neg (Neg); Leukocyte Esterase, Urine 1+ (Neg); Nitrite, Urine Neg (Neg); Protein, Urine Neg (Neg); Urobilinogen, Urine NORM (Normal)
[2022-05-31 17:41] LABS: Bacteria Few /hpf; Red Blood Cells, Urine 0-2 /hpf (0-2); Squamous Epithelial Cells Rare /hpf (Few)
[2022-05-31 18:15] LABS: Alanine Aminotransfer (ALT/SGP 29 U/L (12-78); Albumin/Globulin Ratio 0.9 (0.8-1.8); Alk Phos 128 U/L (50-136); Anion Gap Unable to Calculate mmol/L (6-16); Aspartate Aminotrans (AST/SGOT 25 U/L (12-37); Bilirubin, Total 0.7 mg/dL (0.1-1.0); Blood Urea Nitrogen 14 mg/dL (8-24); Bun/Creatinine Ratio 14.9 (12.0-20.0); CO2, Blood 29 mmol/L (21-32); Calcium, Blood 8.9 mg/dL (8.5-10.1); Chloride, Blood 110 mmol/L (98-108); Creatinine, Blood 0.94 mg/dL (0.60-1.20); Globulin, Blood 3.2 g/dL (2.2-4.0); Glomerular Filtration Rate 82 (60-); Glucose, Blood 93 mg/dL (70-99); Potassium, Blood 3.8 mmol/L (3.5-5.5); Sodium, Blood 138 mmol/L (136-145); Total Protein, Blood 6.2 g/dL (6.4-8.2)
[2022-05-31] MEDS ORDERED: SENN187 PO (19:25)
[2022-05-31] MEDS ORDERED: LOPE2C PO (19:26)
[2022-05-31] MEDS ORDERED: MIRALAX17 GM PO (19:26)
[2022-05-31] MEDS ORDERED: ACET325 PO (19:27)
== END 2022-05-31 21:33 | disposition home or self-care (01) ==
LOC: ER 16:42
PROVIDERS: Emergency Medicine
DX: R40.0 Somnolence (principal); I69.951 Hemiplegia and hemiparesis following unspecified cerebrovascular disease affecting right dominant side; F03.90 Unspecified dementia, unspecified severity, without behavioral disturbance, psychotic disturbance, mood disturbance, and anxiety; Z79.82 Long term (current) use of aspirin; Z79.899 Other long term (current) drug therapy; Z87.891 Personal history of nicotine dependence
CPT/HCPCS: 70450; 71045; 80053; 81001; 85025; 87086; 93005; 93010

== ENCOUNTER 2022-07-13 20:53 | Emergency (ER) | payer OTHER ==
[~2022-07-13] VITALS: Ht 185.4 cm; Wt 74.8 kg
[~2022-07-13 20:53] MED LIST changes: +ACET325 PO; +LOPE2C PO; +SENN187 PO
[2022-07-14 00:30] VITALS: BP 144/88
== END 2022-07-14 00:39 | disposition home or self-care (01) ==
LOC: ER 20:53
DX: S70.02XA Contusion of left hip, initial encounter (principal); F03.90 Unspecified dementia, unspecified severity, without behavioral disturbance, psychotic disturbance, mood disturbance, and anxiety; Z86.73 Personal history of transient ischemic attack (TIA), and cerebral infarction without residual deficits; Z79.82 Long term (current) use of aspirin; Z87.891 Personal history of nicotine dependence; W07.XXXA Fall from chair, initial encounter; Y92.009 Unspecified place in unspecified non-institutional (private) residence as the place of occurrence of the external cause
CPT/HCPCS: 73502; A9270

== ENCOUNTER → 2022-11-04 | Outpatient (CLI) | payer OTHER ==
[2022-11-04 15:14] LABS: Appearance, Urine Clear (Clear); Bilirubin, Urine Neg (Neg); Blood, Urine Neg (Neg); Color, Urine Yellow (P-Yellow); Glucose Qualitative, Urine Neg (Neg); Ketones, Urine Neg (Neg); Leukocyte Esterase, Urine Neg (Neg); Nitrite, Urine Neg (Neg); Protein, Urine Neg (Neg); Urobilinogen, Urine NORM (Normal)
== END | disposition home or self-care (01) ==
LOC: LAB 14:21 → LAB SHORT 14:21
PROVIDERS: Hospitalist
DX: N39.0 Urinary tract infection, site not specified (principal)
CPT/HCPCS: 81003

== ENCOUNTER 2022-12-21 12:40 | Emergency (ER) | payer OTHER ==
[~2022-12-21] VITALS: Ht 188 cm; Wt 83.9 kg
[2022-12-21 16:05] VITALS: BP 148/97
== END 2022-12-21 16:10 | disposition home or self-care (01) ==
LOC: ER 12:40
DX: F03.90 Unspecified dementia, unspecified severity, without behavioral disturbance, psychotic disturbance, mood disturbance, and anxiety (principal); W07.XXXA Fall from chair, initial encounter; Z79.899 Other long term (current) drug therapy; Z79.82 Long term (current) use of aspirin; Z87.891 Personal history of nicotine dependence
CPT/HCPCS: 99283

== ENCOUNTER → 2022-12-22 | Outpatient (CLI) | payer OTHER ==
[2022-12-23 16:02] LABS: Appearance, Urine Clear (Clear); Bilirubin, Urine Neg (Neg); Blood, Urine Neg (Neg); Color, Urine Yellow (P-Yellow); Glucose Qualitative, Urine Neg (Neg); Ketones, Urine Neg (Neg); Leukocyte Esterase, Urine 1+ (Neg); Nitrite, Urine Neg (Neg); Protein, Urine 1+ (Neg); Specific Gravity, Urine 1.025 (1.003-1.022); Urobilinogen, Urine NORM (Normal)
[2022-12-23 16:19] LABS: Calcium Oxalate Crystals Few /hpf
[2022-12-23 16:20] LABS: Bacteria Few /hpf; Red Blood Cells, Urine 0-2 /hpf (0-2); Squamous Epithelial Cells Few /hpf (Few)
== END ==
LOC: LAB 17:00 → LAB SHORT 17:00
PROVIDERS: Hospitalist
DX: N39.0 Urinary tract infection, site not specified (principal)
CPT/HCPCS: 81001; 87086

== ENCOUNTER → 2023-02-23 | Outpatient (CLI) | payer OTHER ==
[2023-02-23 19:09] LABS: Bilirubin, Urine Neg (Neg); Blood, Urine Neg (Neg); Color, Urine Yellow (P-Yellow); Glucose Qualitative, Urine Neg (Neg); Ketones, Urine Neg (Neg); Leukocyte Esterase, Urine Neg (Neg); Nitrite, Urine Neg (Neg); Protein, Urine 1+ (Neg); Specific Gravity, Urine 1.025 (1.003-1.022); Urobilinogen, Urine 1+ (Normal)
[2023-02-23 19:43] LABS: Appearance, Urine Hazy (Clear); Bacteria Mod /hpf; Calcium Oxalate Crystals Rare /hpf; Mucus Light (0-Heavy); Red Blood Cells, Urine 0-2 /hpf (0-2); Squamous Epithelial Cells Rare /hpf (Few)
== END ==
LOC: LAB 18:04 → LAB SHORT 18:04
PROVIDERS: Hospitalist
DX: N39.0 Urinary tract infection, site not specified (principal)
CPT/HCPCS: 81001; 87086

== ENCOUNTER → 2023-02-24 | Outpatient (CLI) | payer OTHER ==
[2023-02-24 15:48] LABS: Appearance, Urine Clear (Clear); Bilirubin, Urine Neg (Neg); Blood, Urine Neg (Neg); Color, Urine Yellow (P-Yellow); Glucose Qualitative, Urine Neg (Neg); Ketones, Urine Neg (Neg); Leukocyte Esterase, Urine 1+ (Neg); Nitrite, Urine Neg (Neg); Protein, Urine Neg (Neg); Specific Gravity, Urine 1.015 (1.003-1.022); Urobilinogen, Urine NORM (Normal)
[2023-02-24 16:12] LABS: Bacteria Few /hpf; Red Blood Cells, Urine 0-2 /hpf (0-2); Squamous Epithelial Cells Few /hpf (Few)
[2023-02-24 16:13] LABS: Amorphous Light (0-Heavy)
== END ==
LOC: LAB SHORT 14:52 → LAB 14:52
PROVIDERS: Hospitalist
DX: N39.0 Urinary tract infection, site not specified (principal)
CPT/HCPCS: 81001; 87086

== ENCOUNTER 2023-03-11 12:10 | Emergency (ER) | payer OTHER ==
[~2023-03-11] VITALS: Ht 188 cm; Wt 69.4 kg
[2023-03-11 13:12] LABS: Source, Urine Clean Catch
[2023-03-11 13:23] LABS: BASOPHILS ABSOLUTE AUTO 0.01 K/mm3 (0.00-0.23); BASOPHILS PERCENT AUTO 0 % (0-2); EOSINOPHILS ABSOLUTE AUTO 0.17 K/mm3 (0.00-0.68); EOSINOPHILS PERCENT AUTO 3 % (0-6); Hematocrit 43.1 % (37.0-53.0); Hemoglobin 13.8 g/dL (13.5-17.5); IMMATURE GRAN ABSOLUTE AUTO 0.01 K/mm3 (0.00-0.10); IMMATURE GRAN PERCENT AUTO 0 % (0-1); LYMPHOCYTES ABSOLUTE AUTO 1.79 K/mm3 (0.84-5.20); LYMPHOCYTES PERCENT AUTO 28 % (21-46); MONOCYTES ABSOLUTE AUTO 0.52 K/mm3 (0.16-1.47); MONOCYTES PERCENT AUTO 8 % (4-13); Mean Corpuscular HGB 27.2 pg (26.0-34.0); Mean Corpuscular Volume 85 fL (80-100); Mean Platelet Volume 9.7 fL (9.1-12.4); NEUTROPHILS ABSOLUTE AUTO 3.92 K/mm3 (1.96-9.15); NEUTROPHILS PERCENT AUTO 61 % (41-73); Platelet Count 178 K/mm3 (150-400); RDW Coefficient Variation 13.5 % (11.7-14.2); RDW Standard Deviation 42.5 fL (35.1-46.3); Red Blood Cell Count 5.08 M/mm3 (4.30-5.90); White Blood Cell Count 6.42 K/mm3 (4.00-11.30)
[2023-03-11 13:32] LABS: Appearance, Urine Turbid (Clear); Bilirubin, Urine Neg (Neg); Blood, Urine 5+ (Neg); Glucose Qualitative, Urine Neg (Neg); Ketones, Urine 1+ (Neg); Leukocyte Esterase, Urine Neg (Neg); Nitrite, Urine Neg (Neg); Protein, Urine 3+ (Neg); Specific Gravity, Urine 1.015 (1.003-1.022); Urobilinogen, Urine NORM (Normal)
[2023-03-11 13:37] LABS: Color, Urine Brown (P-Yellow)
[2023-03-11 13:45] LABS: Red Blood Cells, Urine TNTC /hpf (0-2); White Blood Cells, Urine 0-2 /hpf (0-5)
[2023-03-11 13:46] LABS: Squamous Epithelial Cells Rare /hpf (Few)
[2023-03-11 13:47] LABS: Bacteria Few /hpf
[2023-03-11 13:48] LABS: Albumin, Blood 2.9 g/dL (3.4-5.0); Albumin/Globulin Ratio 0.9 (0.8-1.8); Bilirubin, Total 0.5 mg/dL (0.1-1.0); Bun/Creatinine Ratio 13.4 (12.0-20.0); Creatinine, Blood 0.9 mg/dL (0.60-1.20); Globulin, Blood 3.4 g/dL (2.2-4.0); Potassium, Blood 4.8 mmol/L (3.5-5.5); Total Protein, Blood 6.3 g/dL (6.4-8.2)
[2023-03-11 14:15] VITALS: BP 136/86
== END 2023-03-11 16:13 | disposition home or self-care (01) ==
LOC: ER 12:10
PROVIDERS: Emergency Medicine
DX: R31.9 Hematuria, unspecified (principal); Z87.440 Personal history of urinary (tract) infections; Z87.891 Personal history of nicotine dependence; F03.90 Unspecified dementia, unspecified severity, without behavioral disturbance, psychotic disturbance, mood disturbance, and anxiety; M81.0 Age-related osteoporosis without current pathological fracture; Z86.73 Personal history of transient ischemic attack (TIA), and cerebral infarction without residual deficits; Z79.82 Long term (current) use of aspirin; Z79.899 Other long term (current) drug therapy
CPT/HCPCS: 80053; 81001; 85025; 99283

== ENCOUNTER 2023-03-16 22:07 | Emergency (ER) | payer OTHER ==
[~2023-03-16] VITALS: Ht 188 cm; Wt 74.8 kg
[2023-03-16 22:32] LABS: Source, Urine Voided
[2023-03-16 22:33] LABS: BASOPHILS ABSOLUTE AUTO 0.01 K/mm3 (0.00-0.23); BASOPHILS PERCENT AUTO 0 % (0-2); EOSINOPHILS ABSOLUTE AUTO 0.17 K/mm3 (0.00-0.68); EOSINOPHILS PERCENT AUTO 2 % (0-6); Hematocrit 44.5 % (37.0-53.0); Hemoglobin 14.2 g/dL (13.5-17.5); IMMATURE GRAN ABSOLUTE AUTO 0.01 K/mm3 (0.00-0.10); IMMATURE GRAN PERCENT AUTO 0 % (0-1); LYMPHOCYTES ABSOLUTE AUTO 2.07 K/mm3 (0.84-5.20); LYMPHOCYTES PERCENT AUTO 28 % (21-46); MONOCYTES ABSOLUTE AUTO 0.67 K/mm3 (0.16-1.47); MONOCYTES PERCENT AUTO 9 % (4-13); Mean Corpuscular HGB 27.2 pg (26.0-34.0); Mean Corpuscular HGB Conc 31.9 g/dL (31.5-36.5); Mean Corpuscular Volume 85 fL (80-100); Mean Platelet Volume 9.4 fL (9.1-12.4); NEUTROPHILS ABSOLUTE AUTO 4.37 K/mm3 (1.96-9.15); NEUTROPHILS PERCENT AUTO 60 % (41-73); Platelet Count 174 K/mm3 (150-400); RDW Coefficient Variation 13.5 % (11.7-14.2); Red Blood Cell Count 5.22 M/mm3 (4.30-5.90)
[2023-03-16 22:36] LABS: Appearance, Urine Clear (Clear); Bilirubin, Urine Neg (Neg); Blood, Urine 1+ (Neg); Color, Urine Yellow (P-Yellow); Glucose Qualitative, Urine Neg (Neg); Ketones, Urine Neg (Neg); Leukocyte Esterase, Urine Neg (Neg); Nitrite, Urine Neg (Neg); Protein, Urine Neg (Neg); Specific Gravity, Urine 1.025 (1.003-1.022); Urobilinogen, Urine 2+ (Normal)
[2023-03-16 22:51] LABS: Albumin, Blood 2.9 g/dL (3.4-5.0); Albumin/Globulin Ratio 0.8 (0.8-1.8); Bilirubin, Total 0.5 mg/dL (0.1-1.0); Bun/Creatinine Ratio 14.8 (12.0-20.0); Calcium, Blood 8.5 mg/dL (8.5-10.1); Creatinine, Blood 0.88 mg/dL (0.60-1.20); Globulin, Blood 3.6 g/dL (2.2-4.0); Potassium, Blood 4.1 mmol/L (3.5-5.5); Total Protein, Blood 6.5 g/dL (6.4-8.2)
[2023-03-16 22:56] LABS: Bacteria Mod /hpf; Red Blood Cells, Urine 0-2 /hpf (0-2); Squamous Epithelial Cells Few /hpf (Few)
[2023-03-17 00:56] VITALS: BP 140/86
== END 2023-03-17 02:45 | disposition home or self-care (01) ==
LOC: ER 22:07
PROVIDERS: Student in an Organized Health Care Education/Training Program
DX: Z04.3 Encounter for examination and observation following other accident (principal); F03.90 Unspecified dementia, unspecified severity, without behavioral disturbance, psychotic disturbance, mood disturbance, and anxiety; I69.951 Hemiplegia and hemiparesis following unspecified cerebrovascular disease affecting right dominant side; Z79.899 Other long term (current) drug therapy; Z79.82 Long term (current) use of aspirin; Z87.891 Personal history of nicotine dependence
CPT/HCPCS: 80053; 81001; 85025; 87086; 99283

== ENCOUNTER → 2023-03-17 | Outpatient (CLI) | payer OTHER ==
[2023-03-17 13:17] LABS: Source, Urine Voided
[2023-03-17 14:47] LABS: Appearance, Urine Clear (Clear); Bilirubin, Urine Neg (Neg); Blood, Urine Neg (Neg); Color, Urine Yellow (P-Yellow); Glucose Qualitative, Urine Neg (Neg); Ketones, Urine Neg (Neg); Leukocyte Esterase, Urine Neg (Neg); Nitrite, Urine Neg (Neg); Protein, Urine Neg (Neg); Specific Gravity, Urine 1.015 (1.003-1.022); Urobilinogen, Urine 1+ (Normal)
== END ==
LOC: LAB 12:00 → LAB SHORT 12:00
PROVIDERS: Hospitalist
DX: N39.0 Urinary tract infection, site not specified (principal)
CPT/HCPCS: 81003

== ENCOUNTER 2023-03-18 17:27 | Emergency (ER) | payer OTHER ==
[~2023-03-18] VITALS: Ht 172.7 cm; Wt 74.8 kg
[2023-03-18 19:21] VITALS: BP 127/88
== END 2023-03-18 19:21 | disposition home or self-care (01) ==
LOC: ER 17:27
DX: R53.83 Other fatigue (principal); R63.8 Other symptoms and signs concerning food and fluid intake; Z79.899 Other long term (current) drug therapy; Z79.82 Long term (current) use of aspirin; Z87.891 Personal history of nicotine dependence
CPT/HCPCS: 99283

== ENCOUNTER → 2023-03-30 | Outpatient (CLI) | payer OTHER | LOC: LAB 08:41 → LAB SHORT 08:41 | DX: D04.21 Carcinoma in situ of skin of right ear and external auricular canal (principal) | CPT/HCPCS: 88305 ==

== ENCOUNTER 2023-11-29 16:29 | Inpatient (IN) | payer OTHER ==
[~2023-11-29] VITALS: Ht 182.9 cm; Wt 75.3 kg
[~2023-11-29 16:29] MED LIST changes: +Benadryl Itch28.3 G1 TOP; +HYDHCL25 PO; +NYSTRIT TOP
[2023-11-29 17:50] LABS: BASOPHILS ABSOLUTE AUTO 0.01 K/mm3 (0.00-0.23); BASOPHILS PERCENT AUTO 0 % (0-2); EOSINOPHILS ABSOLUTE AUTO 0.02 K/mm3 (0.00-0.68); EOSINOPHILS PERCENT AUTO 0 % (0-6); Hemoglobin 14.1 g/dL (13.5-17.5); IMMATURE GRAN ABSOLUTE AUTO 0.02 K/mm3 (0.00-0.10); IMMATURE GRAN PERCENT AUTO 0 % (0-1); LYMPHOCYTES ABSOLUTE AUTO 0.59 K/mm3 (0.84-5.20); LYMPHOCYTES PERCENT AUTO 9 % (21-46); MONOCYTES ABSOLUTE AUTO 0.15 K/mm3 (0.16-1.47); MONOCYTES PERCENT AUTO 2 % (4-13); Mean Corpuscular HGB 27.4 pg (26.0-34.0); Mean Corpuscular Volume 85 fL (80-100); Mean Platelet Volume 9.5 fL (9.1-12.4); NEUTROPHILS ABSOLUTE AUTO 6.05 K/mm3 (1.96-9.15); NEUTROPHILS PERCENT AUTO 89 % (41-73); Platelet Count 189 K/mm3 (150-400); RDW Coefficient Variation 14.4 % (11.7-14.2); RDW Standard Deviation 45.8 fL (35.1-46.3); Red Blood Cell Count 5.15 M/mm3 (4.30-5.90); White Blood Cell Count 6.84 K/mm3 (4.00-11.30)
[2023-11-29 18:29] LABS: Free Thyroxine 1.07 ng/dL (0.70-1.60)
[2023-11-29 18:33] LABS: Albumin, Blood 2.5 g/dL (3.4-5.0); Albumin/Globulin Ratio 0.6 (0.8-1.8); Bilirubin, Total 0.4 mg/dL (0.1-1.0); Bun/Creatinine Ratio 27.5 (12.0-20.0); Calcium, Blood 8.8 mg/dL (8.5-10.1); Creatinine, Blood 0.76 mg/dL (0.60-1.20); Potassium, Blood 4.4 mmol/L (3.5-5.5); Thyroid Stimulating Hormone 0.576 uIU/mL (0.360-4.800); Total Protein, Blood 6.5 g/dL (6.4-8.2)
[2023-11-29] MEDS ORDERED: CefTRIAXone Sodium 1,000 MG in NS 100 ML IV ONE (20:30)
[2023-11-29 21:27] LABS: Source, Urine Straight Cath
[2023-11-29 21:43] LABS: Appearance, Urine Hazy (Clear); Bilirubin, Urine Neg (Neg); Blood, Urine 4+ (Neg); Color, Urine Yellow (P-Yellow); Glucose Qualitative, Urine Neg (Neg); Ketones, Urine Neg (Neg); Leukocyte Esterase, Urine 3+ (Neg); Nitrite, Urine Pos (Neg); Protein, Urine 1+ (Neg); Urobilinogen, Urine NORM (Normal)
[2023-11-29 21:57] LABS: Bacteria Mod /hpf; Squamous Epithelial Cells Few /hpf (Few); White Blood Cells, Urine 50-100 /hpf (0-5)
[2023-11-29] MEDS ORDERED: Ondansetron HCl 2 MG / ML 2ML Vial IV PRN (22:25)
[2023-11-29] MEDS ORDERED: Acetaminophen 325 MG TABLET PO PRN (22:25)
[2023-11-29] MEDS ORDERED: FLU VACC TS2024-25(6MOS UP)/PF 45 MCG/0.5 ML SYRINGE IM SCH (22:25)
[2023-11-29] MEDS ORDERED: NS 1,000 ML IV SCH (22:25)
[2023-11-29] MEDS ORDERED: NS 1,000 ML IV ONE (23:00)
[2023-11-30 04:35] LABS: BASOPHILS ABSOLUTE AUTO 0.01 K/mm3 (0.00-0.23); BASOPHILS PERCENT AUTO 0 % (0-2); EOSINOPHILS ABSOLUTE AUTO 0.46 K/mm3 (0.00-0.68); EOSINOPHILS PERCENT AUTO 5 % (0-6); Hematocrit 41.4 % (37.0-53.0); Hemoglobin 13.1 g/dL (13.5-17.5); IMMATURE GRAN ABSOLUTE AUTO 0.04 K/mm3 (0.00-0.10); IMMATURE GRAN PERCENT AUTO 0 % (0-1); LYMPHOCYTES ABSOLUTE AUTO 1.53 K/mm3 (0.84-5.20); LYMPHOCYTES PERCENT AUTO 16 % (21-46); MONOCYTES ABSOLUTE AUTO 0.68 K/mm3 (0.16-1.47); MONOCYTES PERCENT AUTO 7 % (4-13); Mean Corpuscular HGB 26.7 pg (26.0-34.0); Mean Corpuscular HGB Conc 31.6 g/dL (31.5-36.5); Mean Corpuscular Volume 85 fL (80-100); NEUTROPHILS ABSOLUTE AUTO 7.07 K/mm3 (1.96-9.15); NEUTROPHILS PERCENT AUTO 72 % (41-73); Platelet Count 192 K/mm3 (150-400); RDW Coefficient Variation 14.3 % (11.7-14.2); RDW Standard Deviation 44.4 fL (35.1-46.3); White Blood Cell Count 9.79 K/mm3 (4.00-11.30)
[2023-11-30 05:12] LABS: Bun/Creatinine Ratio 23.3 (12.0-20.0); Calcium, Blood 8.3 mg/dL (8.5-10.1); Creatinine, Blood 0.69 mg/dL (0.60-1.20); Potassium, Blood 3.8 mmol/L (3.5-5.5)
[2023-11-30] MEDS ORDERED: Lactobacil 2-S.Thermo-Bifido 1 1 Cap PO SCH (09:00)
[2023-11-30] MEDS ORDERED: Enoxaparin 40 MG/0.4 ML SYR SC SCH (09:00)
[2023-11-30] MEDS ORDERED: Aspirin 81 MG Chew PO SCH (09:00)
[2023-11-30] MEDS ORDERED: PRED20 PO (09:44)
--- NOTE | 2023-11-30 10:30 | NUR ---
PT ARRIVED TO ROOM APPROX 0930 AND SETTLED INTO HIS BED. NODS HIS HEAD YES/NO TO QUESTIONS BUT DOES ANSWER DIRECT QUESTIONS. ORIENTED TO SELF. BED ALARM ON FOR SAFETY ALTHOUGH HE DOESN'T APPEAR TO TRY TO GET UP. RASH MOSTLY TO TRUNK OF HIS BODY AND ARMS WHICH IS REPORTED HE HAS HAD ON AND OFF SINCE SEPTEMBER. SPOKE WITH GERALD ON THE PHONE AND GAVE HER UPDATES.
[2023-11-30] MEDS ORDERED: Loperamide HCl 2 MG Cap PO PRN (13:40)
[2023-11-30] MEDS ORDERED: Nystatin/Triamcinolone Ointment 15 GM TOP SCH (14:00)
[2023-11-30 15:24] VITALS: BP 122/73
[2023-11-30] MEDS ORDERED: DiphenhydrAMINE HCL/Zinc Acet Cream TOP SCH (17:00)
[2023-11-30] MEDS ORDERED: HyDROXyzine HCl 25 MG Tab PO SCH (18:00)
--- NOTE | 2023-11-30 18:16 | NUR ---
PT CONTINUES TO SPEAK ONLY AT TIMES. ABLE TO FEED HIMSELF AND ASSIST WITH REPOSITIONING IN BED. HEEL PROTECTORS TO HEELS. REPORTED A LOT OF ITCHING TO ARMS PRIOR TO CREAMS AND ATARAX GIVEN.
[2023-11-30 19:39] VITALS: BP 113/67
[2023-11-30] MEDS ORDERED: CefTRIAXone Sodium 1,000 MG in NS 100 ML IV SCH (21:00)
[2023-12-01 05:06] VITALS: BP 130/79
[2023-12-01 07:15] LABS: BASOPHILS ABSOLUTE AUTO 0.01 K/mm3 (0.00-0.23); BASOPHILS PERCENT AUTO 0 % (0-2); EOSINOPHILS ABSOLUTE AUTO 0.88 K/mm3 (0.00-0.68); EOSINOPHILS PERCENT AUTO 13 % (0-6); Hematocrit 39.5 % (37.0-53.0); Hemoglobin 12.5 g/dL (13.5-17.5); IMMATURE GRAN ABSOLUTE AUTO 0.02 K/mm3 (0.00-0.10); IMMATURE GRAN PERCENT AUTO 0 % (0-1); LYMPHOCYTES ABSOLUTE AUTO 1.45 K/mm3 (0.84-5.20); LYMPHOCYTES PERCENT AUTO 21 % (21-46); MONOCYTES PERCENT AUTO 6 % (4-13); Mean Corpuscular HGB 27.1 pg (26.0-34.0); Mean Corpuscular HGB Conc 31.6 g/dL (31.5-36.5); Mean Corpuscular Volume 86 fL (80-100); Mean Platelet Volume 9.3 fL (9.1-12.4); NEUTROPHILS ABSOLUTE AUTO 4.23 K/mm3 (1.96-9.15); NEUTROPHILS PERCENT AUTO 61 % (41-73); Platelet Count 192 K/mm3 (150-400); RDW Coefficient Variation 14.5 % (11.7-14.2); RDW Standard Deviation 45.3 fL (35.1-46.3); Red Blood Cell Count 4.62 M/mm3 (4.30-5.90); White Blood Cell Count 6.99 K/mm3 (4.00-11.30)
[2023-12-01 07:22] VITALS: BP 116/69
[2023-12-01 07:35] LABS: Albumin, Blood 2.3 g/dL (3.4-5.0); Albumin/Globulin Ratio 0.7 (0.8-1.8); Bilirubin, Total 0.4 mg/dL (0.1-1.0); Calcium, Blood 8.2 mg/dL (8.5-10.1); Creatinine, Blood 0.72 mg/dL (0.60-1.20); Globulin, Blood 3.3 g/dL (2.2-4.0); Total Protein, Blood 5.6 g/dL (6.4-8.2)
[2023-12-01] MEDS ORDERED: Polyethylene Glycol 3350 17 gm PO SCH (09:00)
[2023-12-01] MEDS ORDERED: Venlafaxine HCl 75 MG CapCR PO SCH (09:00)
[2023-12-01] MEDS ORDERED: Atorvastatin 10 MG Tab PO SCH (09:00)
[2023-12-01] MEDS ORDERED: PredniSONE 20 MG Tab PO SCH (09:00)
[2023-12-01] MEDS ORDERED: Sennosides 8.6 MG Tab PO SCH (09:00)
[2023-12-01 15:16] VITALS: BP 120/71
[2023-12-01] MEDS ORDERED: NYSTOP15 GM TOP (16:53)
[2023-12-01] MEDS ORDERED: ZINC OXIDE57 GM TOP (16:54)
--- NOTE | 2023-12-01 19:12 | NUR ---
SHIFT SUMMARY MR SALEH IS CONFUSED, SAYS SOME WORDS BUT NONSENSICAL IN RELATION TO CONVERSATION. HE IS ABLE TO FOLLOW SOME SIMPLE INSTRUCTIONS, LIKE FEEDING HIMSELF WHEN PROMPTED, BUT UNABLE TO FOLLOW OTHER REQUESTS. HE CALLS OUT RATHER THAN USING CALL LIGHT. REPOSTIONED Q2HRS WITH 1 PERSON ASSIST. HUNT REMOVED AT 1220HRS. HE HAS BEEN INCONTINENT OF URINE SINCE HUNT WAS REMOVED. PLAN TO RETURN TO [facility]. BED LOW, CALL LIGHT IN REACH, BED ALARM ON.
[2023-12-01 20:33] VITALS: BP 125/73
[2023-12-01] MEDS ORDERED: Zinc Oxide Ointment 30 GM TOP PRN (23:45)
[2023-12-02] MEDS ORDERED: Miconazole Nitrate 2% 85 GM PWD TOP PRN (00:05)
[2023-12-02 03:43] VITALS: BP 134/69
--- NOTE | 2023-12-02 05:58 | NUR ---
CLOTH BOOKER SUMMARY NO ACUTE CHANGES OVERNIGHT. PT HAD HUNT REMOVED YESTERDAY 11/30 AND HAS HAD EXCELLENT URINE OUTPUT SINCE.
[2023-12-02 07:51] VITALS: BP 132/78
[2023-12-02 08:02] LABS: Bun/Creatinine Ratio 17.7 (12.0-20.0); Calcium, Blood 8.1 mg/dL (8.5-10.1); Creatinine, Blood 0.68 mg/dL (0.60-1.20); Potassium, Blood 3.7 mmol/L (3.5-5.5)
[2023-12-02 08:05] LABS: BASOPHILS ABSOLUTE AUTO 0.01 K/mm3 (0.00-0.23); BASOPHILS PERCENT AUTO 0 % (0-2); EOSINOPHILS ABSOLUTE AUTO 0.84 K/mm3 (0.00-0.68); EOSINOPHILS PERCENT AUTO 11 % (0-6); Hematocrit 40.1 % (37.0-53.0); Hemoglobin 12.9 g/dL (13.5-17.5); IMMATURE GRAN ABSOLUTE AUTO 0.02 K/mm3 (0.00-0.10); IMMATURE GRAN PERCENT AUTO 0 % (0-1); LYMPHOCYTES ABSOLUTE AUTO 1.83 K/mm3 (0.84-5.20); LYMPHOCYTES PERCENT AUTO 24 % (21-46); MONOCYTES ABSOLUTE AUTO 0.49 K/mm3 (0.16-1.47); MONOCYTES PERCENT AUTO 6 % (4-13); Mean Corpuscular HGB 27.4 pg (26.0-34.0); Mean Corpuscular HGB Conc 32.2 g/dL (31.5-36.5); Mean Corpuscular Volume 85 fL (80-100); Mean Platelet Volume 9.8 fL (9.1-12.4); NEUTROPHILS ABSOLUTE AUTO 4.55 K/mm3 (1.96-9.15); NEUTROPHILS PERCENT AUTO 59 % (41-73); Platelet Count 188 K/mm3 (150-400); RDW Standard Deviation 43.8 fL (35.1-46.3); Red Blood Cell Count 4.71 M/mm3 (4.30-5.90); White Blood Cell Count 7.74 K/mm3 (4.00-11.30)
[2023-12-02] MEDS ORDERED: HYDHCL25 PO (12:22)
[2023-12-02] MEDS ORDERED: Benadryl Itch28.3 G1 TOP (12:22)
[2023-12-02] MEDS ORDERED: NYSTRIT TOP (12:23)
[2023-12-02] MEDS ORDERED: LEVO750 PO (12:23)
[2023-12-02] MEDS ORDERED: VISBIOME 112.51 EACH PO (12:23)
[2023-12-02] MEDS ORDERED: PredniSONE 20 MG Tab PO ONE (13:00)
[2023-12-02] MEDS ORDERED: Atorvastatin 40 MG Tab PO SCH (20:00)
== END 2023-12-02 14:55 | disposition home or self-care (01) | DRG 689 ==
LOC: ER 16:29 → ERHOLD 22:21 → MEDS 11-30 09:20
PROVIDERS: Nurse Practitioner Acute Care; Registered Nurse; Student in an Organized Health Care Education/Training Program; ADMIT Student in an Organized Health Care Education/Training Program
DX: N39.0 Urinary tract infection, site not specified (principal); G92.8 Other toxic encephalopathy; F03.93 Unspecified dementia, unspecified severity, with mood disturbance; I69.351 Hemiplegia and hemiparesis following cerebral infarction affecting right dominant side; Z66 Do not resuscitate; Z79.82 Long term (current) use of aspirin; Z79.899 Other long term (current) drug therapy; M81.0 Age-related osteoporosis without current pathological fracture; H35.30 Unspecified macular degeneration; Z90.49 Acquired absence of other specified parts of digestive tract; Z87.891 Personal history of nicotine dependence; E78.5 Hyperlipidemia, unspecified
CPT/HCPCS: 36415; 51702; 70450; 70496; 70498; 71045; 80048; 80053; 81001; 82140; 83605; 84439; 84443; 84484; 85025; 87040; 93005; 93010; 96365-59; 99285-25; A9270; J0696; J1650; J7030; J7512; Q9967

== ENCOUNTER 2024-01-27 16:57 | Emergency (ER) | payer OTHER ==
[~2024-01-27] VITALS: Ht 167.6 cm; Wt 72.6 kg
[~2024-01-27 16:57] MED LIST changes: +LEVO750 PO; +NYSTOP15 GM TOP; +PRED20 PO; +ZINC OXIDE57 GM TOP
[2024-01-27] MEDS ORDERED: VENLAFAXINE HC225 MG PO (18:01)
[2024-01-27] MEDS ORDERED: MethylPREDNISolone Sod Succ 125 MG Vial IV ONE (18:10)
[2024-01-27 18:59] LABS: Hematocrit 43.8 % (37.0-53.0); Mean Corpuscular HGB 27.1 pg (26.0-34.0); Mean Corpuscular Volume 85 fL (80-100); Mean Platelet Volume 9.6 fL (9.1-12.4); Platelet Count 236 K/mm3 (150-400); RDW Coefficient Variation 14.2 % (11.7-14.2); RDW Standard Deviation 43.8 fL (35.1-46.3); Red Blood Cell Count 5.16 M/mm3 (4.30-5.90); White Blood Cell Count 13.56 K/mm3 (4.00-11.30)
[2024-01-27 19:19] LABS: Albumin, Blood 2.8 g/dL (3.4-5.0); Albumin/Globulin Ratio 0.7 (0.8-1.8); Bilirubin, Total 0.7 mg/dL (0.1-1.0); Bun/Creatinine Ratio 12.9 (12.0-20.0); Calcium, Blood 8.7 mg/dL (8.5-10.1); Creatinine, Blood 0.78 mg/dL (0.60-1.20); Globulin, Blood 3.8 g/dL (2.2-4.0); Magnesium, Blood 2.1 mg/dL (1.6-2.4); Potassium, Blood 4.1 mmol/L (3.5-5.5); Total Protein, Blood 6.6 g/dL (6.4-8.2)
[2024-01-27 19:25] LABS: BAND PERCENT MAN 8 % (0-8); BASOPHILS PERCENT MAN 0 % (0-2); EOSINOPHILS ABSOLUTE MAN 2.71 K/mm3 (0.00-0.68); EOSINOPHILS PERCENT MAN 20 % (0-6); LYMPHOCYTES PERCENT MAN 17 % (21-46); MONOCYTES ABSOLUTE MAN 0.54 K/mm3 (0.16-1.47); MONOCYTES PERCENT MAN 4 % (4-13); SEG NEUTROPHILS PERCENT MAN 51 % (41-73); TOTAL CELLS COUNTED 100
[2024-01-27] MEDS ORDERED: BENADRYL25 M1 PO ×2 (20:06→21:25)
[2024-01-27] MEDS ORDERED: SULTRIDS PO (20:06)
[2024-01-27] MEDS ORDERED: PRED20 PO ×2 (20:06→21:25)
[2024-01-27 21:00] VITALS: BP 117/72
[2024-01-27] MEDS ORDERED: CEPH500 PO (21:25)
== END 2024-01-27 21:10 | disposition home or self-care (01) ==
LOC: ER 16:57
PROVIDERS: Student in an Organized Health Care Education/Training Program
DX: L03.116 Cellulitis of left lower limb (principal); L03.115 Cellulitis of right lower limb; L03.311 Cellulitis of abdominal wall; L29.9 Pruritus, unspecified; E78.5 Hyperlipidemia, unspecified; Z87.891 Personal history of nicotine dependence; Z79.899 Other long term (current) drug therapy; Z88.2 Allergy status to sulfonamides
CPT/HCPCS: 80053; 83735; 85025; 96374; 99283-25; J2919

== ENCOUNTER → 2024-01-30 | Outpatient (CLI) | payer OTHER ==
[~2024-01-30] MED LIST changes: +BENADRYL25 M1 PO; +CEPH500 PO; +SULTRIDS PO; +VENLAFAXINE HC225 MG PO
== END | disposition home or self-care (01) ==
LOC: LAB SHORT 12:15 → LAB 12:15
PROVIDERS: Hospitalist
DX: L23.9 Allergic contact dermatitis, unspecified cause (principal)
CPT/HCPCS: 82785; 86003

== ENCOUNTER 2024-06-11 13:17 | Emergency (ER) | payer MEDICARE, OTHER ==
[~2024-06-11] VITALS: Ht 180.3 cm; Wt 72.6 kg
[2024-06-11 13:27] VITALS: BP 108/79
[2024-06-11] MEDS ORDERED: FURO20 PO (13:42)
[2024-06-11] MEDS ORDERED: MINOCYCLINE HC100 M2 PO (13:43)
[2024-06-11] MEDS ORDERED: POTA10T PO (13:43)
[2024-06-11] MEDS ORDERED: LOPE2C PO (13:43)
[2024-06-11] MEDS ORDERED: SENNA LAXATIVE8.6 MG PO (13:44)
[2024-06-11 14:07] LABS: BASOPHILS ABSOLUTE AUTO 0.03 K/mm3 (0.00-0.23); BASOPHILS PERCENT AUTO 0 % (0-2); EOSINOPHILS ABSOLUTE AUTO 0.02 K/mm3 (0.00-0.68); EOSINOPHILS PERCENT AUTO 0 % (0-6); Hematocrit 49.2 % (37.0-53.0); Hemoglobin 15.8 g/dL (13.5-17.5); IMMATURE GRAN ABSOLUTE AUTO 0.09 K/mm3 (0.00-0.10); IMMATURE GRAN PERCENT AUTO 1 % (0-1); LYMPHOCYTES ABSOLUTE AUTO 1.61 K/mm3 (0.84-5.20); LYMPHOCYTES PERCENT AUTO 15 % (21-46); MONOCYTES ABSOLUTE AUTO 0.73 K/mm3 (0.16-1.47); MONOCYTES PERCENT AUTO 7 % (4-13); Mean Corpuscular HGB 27.1 pg (26.0-34.0); Mean Corpuscular HGB Conc 32.1 g/dL (31.5-36.5); Mean Corpuscular Volume 85 fL (80-100); Mean Platelet Volume 10.5 fL (9.1-12.4); NEUTROPHILS ABSOLUTE AUTO 8.52 K/mm3 (1.96-9.15); NEUTROPHILS PERCENT AUTO 78 % (41-73); Platelet Count 202 K/mm3 (150-400); RDW Coefficient Variation 16.6 % (11.7-14.2); Red Blood Cell Count 5.82 M/mm3 (4.30-5.90)
[2024-06-11 14:33] LABS: Albumin/Globulin Ratio 0.6 (0.8-1.8); Bilirubin, Total 0.9 mg/dL (0.1-1.0); Bun/Creatinine Ratio 17.2 (12.0-20.0); Calcium, Blood 8.2 mg/dL (8.5-10.1); Creatinine, Blood 1.16 mg/dL (0.60-1.20); Globulin, Blood 3.6 g/dL (2.2-4.0); Potassium, Blood 4.6 mmol/L (3.5-5.5); Total Protein, Blood 5.6 g/dL (6.4-8.2)
== END 2024-06-11 16:23 | disposition home or self-care (01) ==
LOC: ER 13:17
PROVIDERS: Emergency Medicine
DX: R40.4 Transient alteration of awareness (principal); F03.90 Unspecified dementia, unspecified severity, without behavioral disturbance, psychotic disturbance, mood disturbance, and anxiety; Z88.2 Allergy status to sulfonamides; Z79.899 Other long term (current) drug therapy; Z87.891 Personal history of nicotine dependence
CPT/HCPCS: 80053; 85025; 93005; 93010; 99285-25